=== PATIENT | female | born 1970 | race Caucasian/White ===

== ENCOUNTER 2017-08-03 20:15 | Observation (INO) | payer BC ==
[2017-08-03] MEDS ORDERED: Sodium Chloride 0.9% 1000 ML 1,000 ML IV SCH (20:30)
[2017-08-03] MEDS ORDERED: DUONEB 0.5-3 MG/3 ml Neb IH ONE ×2 (20:34→20:47)
--- NOTE | 2017-08-03 20:34 | ERPHSYRPT ---
- History of Present Illness Time Seen by Provider: 08/03/17 20:29 Source: patient, family Exam Limitations: clinical condition Patient Subjective Stated Complaint: states had to shake her awake at home.. difficulty walking and dizziness. has had a toothache yesterday. slow to respond. took 2 people to get out of car. Triage Nursing Assessment: sluggish and slow to respond. had to remove from car with assist of 2. sugar low at home at approx 66 and was given 2 reeses cups per . sufgar on arrival 224. very unstavble with walking. able to transfer with assist of 2. VINSON Able to follow commands. 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 Timing/Duration: today Severity: moderate Character of Deficits: new weakness, general (difuse) Baseline/Normal Cognition: alert oriented x 3 Current Cognition: alert but confused Baseline Gait: walks w/o assistance Associated Symptoms: confusion, nausea, vomiting, weakness, insomnia, trouble walking Allergies/Adverse Reactions: codeine [Codeine] Allergy (Severe, Verified 01/31/12 13:56) chest pain Sulfa (Sulfonamide Antibiotics) [Sulfa(Sulfonamide Antibiotics)] Allergy ( Intermediate, Verified 01/31/12 13:56) Difficulty Breathing Home Medications: Albuterol 1 puff IH BID PRN 01/31/12 [History] Alprazolam [Xanax] 2 mg QID 01/31/12 [History] Glyburide 5 mg [Micronase 5 MG] 5 mg DAILY 01/31/12 [History] Metformin HCl 1000 mg [Glucophage 1000 MG] 1,000 mg BID 01/31/12 [History] Oxycodone HCl 80 mg TID 01/31/12 [History] Quetiapine Fumarate [Seroquel] 400 mg BID 01/31/12 [History] Hydrocodone Bit/Acetaminophen [Hydrocodon-Acetaminophn 10-325] 10 mg PO Q6H PRN PRN 07/24/15 [History] Pravastatin Sodium 40 mg PO DAILY 07/24/15 [History] Hx Influenza Vaccination/Date Given: No Hx Pneumococcal Vaccination/Date Given: No Immunizations Up to Date: (unknown) - Review of Systems Constitutional: No Fever, No Chills Eyes: No Symptoms Ears, Nose, & Throat: No Symptoms Respiratory: Wheezing, No Cough, No Dyspnea Cardiac: No Chest Pain, No Edema, No Syncope Abdominal/Gastrointestinal: Nausea, Vomiting, No Abdominal Pain, No Diarrhea Genitourinary Symptoms: No Dysuria Musculoskeletal: No Back Pain, No Neck Pain Skin: No Rash Neurological: No Dizziness, No Focal Weakness, No Sensory Changes Psychological: No Symptoms Endocrine: No Symptoms All Other Systems: Reviewed and Negative - Past Medical History Pertinent Past Medical History: Yes Neurological History: Peripheral Neuropathy ENT History: No Pertinent History Cardiac History: No Pertinent History Respiratory History: Asthma Endocrine Medical History: Diabetes Type II Musculoskeletal History: Arthritis, Fractures GI Medical History: Gallbladder Disease, Hemorrhoids History: No Pertinent History Psycho-Social History: Anxiety, Depression Female Reproductive Disorders: Menstrual Problems Other Medical History: celiac disease - Past Surgical History Past Surgical History: Yes Neuro Surgical History: No Pertinent History Cardiac: No Pertinent History Respiratory: No Pertinent History Gastrointestinal: No Pertinent History, Cholecystectomy Genitourinary: No Pertinent History Musculoskeletal: No Pertinent History Female Surgical History: Other Other Surgical History: age 17 had exploratory to check ovaries - Social History Smoking Status: Current every day smoker How long have you smoked: 23 years Exposure to second hand smoke: Yes Drug Use: none Patient Lives Alone: No Significant Family History: no pertinent family hx - Female History Hx Last Menstrual Period: unknown Hx Now: No (hcg pending) - Nursing Vital Signs Nursing Vital Signs: Initial Vital Signs Pulse Rate 122 H 08/03/17 20:19 Respiratory Rate 20 08/03/17 20:19 Blood Pressure 179/110 08/03/17 20:19 O2 Sat by Pulse Oximetry 93 L 08/03/17 20:19 Pain Scale Pain Intensity 5 - [place] Coma Scale Best Eye Response (Kristopher): (4) open spontaneously Best Verbal Response ([place]): (5) oriented Best Motor Response (Kristopher): (6) obeys commands Kristopher Total: 15 - Physical Exam General Appearance: no apparent distress, alert Eye Exam: bilateral eye: PERRL, EOMI Ears, Nose, Throat Exam: normal ENT inspection, moist mucous membranes Neck Exam: normal inspection, non-tender, supple Respiratory: airway intact, wheezing, No respiratory distress Cardiovascular: regular rate/rhythm, No edema Gastrointestinal: soft, No tenderness, No distention Back Exam: normal inspection Extremity Exam: normal inspection, No pedal edema Peripheral Pulses: carotid (R): 2+, carotid (L): 2+, femoral (R): 2+, femoral (L ): 2+, dorsalis-pedis (R): 2+, dorsalis-pedis (L): 2+ 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, 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: PERRL, tongue midline Motor/Sensory: no motor deficit, no pronator drift, weak motor strength RUE, weak motor strength LUE, weak motor strength RLE, weak motor strength LLE DTR: bicep (R): 2+, bicep (L): 2+, tricep (R): 2+, tricep (L): 2+, knee (R): 2+ , knee (L): 2+, ankle (R): 2+, ankle (L): 2+ Skin Exam: normal color, warm, dry, No rash SpO2 Interpretation: borderline oxygenation SpO2: 94 Oxygen Delivery: Room Air - Course Nursing assessment & vital signs reviewed: Yes EKG Interpreted by Me: Sinus Tach, Non-specific ST Changes - Radiology Exams Chest X-ray Interpretation: Reviewed by me, No Pneumonia (chronic changes similar to prior) - CT Exams Head CT Interpretation: Tele-radiologist Report, No/Intracranial Hemorrhag Ordered Tests: Active Orders 24 hr Category Date Time Status Manager Interventional STAT Care 08/03/17 20:24 Active Clean Catch Urine Specimen STAT Care 08/03/17 20:22 Active EKG-ER Only STAT Care 08/03/17 20:22 Active IV Insertion STAT Care 08/03/17 20:22 Active NPO (ED) STAT Care 08/03/17 20:22 Active Pulse Oximetry (ED) STAT Care 08/03/17 20:22 Active CHEST 1 VIEW (PORTABLE) Stat Exams 08/03/17 20:23 Taken HEAD WITHOUT CONTRAST [CT] Stat Exams 08/03/17 20:32 Taken CBC W DIFF Stat Lab 08/03/17 20:30 Completed CMP Stat Lab 08/03/17 22:38 Completed CULTURE, THROAT Stat Lab 08/03/17 21:00 Received D-DIMER QUANTITATION Stat Lab 08/03/17 20:30 Completed ETHYL ALCOHOL Stat Lab 08/03/17 20:30 Completed HCG QUALITATIVE,SERUM Stat Lab 08/03/17 20:30 Completed LIPASE Stat Lab 08/03/17 20:30 Completed Lactic Acid Stat Lab 08/03/17 20:22 Completed Lactic Acid Stat Lab 08/03/17 22:43 Ordered MAGNESIUM Stat Lab 08/03/17 20:30 Completed Manual Differential NC Stat Lab 08/03/17 20:30 Completed NT PRO BNP Stat Lab 08/03/17 20:30 Completed STREP SCREEN-BETA A Stat Lab 08/03/17 21:00 Completed T4 (Thyroxine) Stat Lab 08/03/17 20:30 Completed TROPONIN Q3H Lab 08/03/17 20:30 Completed TROPONIN Q3H Lab 08/03/17 23:30 Ordered TROPONIN Q3H Lab 08/04/17 02:30 Ordered TROPONIN Q3H Lab 08/04/17 05:30 Ordered TROPONIN Q3H Lab 08/04/17 08:30 Ordered TSH [TSH, 3RD Generation] Stat Lab 08/03/17 20:30 Completed UA W/RFX UR CULTURE Stat Lab 08/03/17 20:23 Completed Urine Triage Profile Stat Lab 08/03/17 22:00 Completed Respiratory Nebulizer STAT RT 08/03/17 20:34 Completed Medication Summary Generic Name Dose Route Start Last Admin Trade Name Freq PRN Reason Stop Dose Admin Sodium Chloride 1,000 mls @ 100 mls/hr 08/03/17 20:30 08/03/17 20:43 Sodium Chloride 0.9% 1000 Ml IV 09/02/17 20:29 100 mls/hr .Q10H SHELLEY Administration Discontinued Medications Generic Name Dose Route Start Last Admin Trade Name Freq PRN Reason Stop Dose Admin Albuterol/Ipratropium 3 ml 08/03/17 20:34 08/03/17 20:49 Duoneb 0.5-3 Mg/3 Ml Neb IH 08/03/17 20:35 3 ml STAT ONE Administration Albuterol/Ipratropium Confirm 08/03/17 20:47 Duoneb 0.5-3 Mg/3 Ml Neb Administered 08/03/17 20:48 Dose 3 ml IH .STK-MED ONE Ceftriaxone Sodium/Dextrose 1 g in 50 mls @ 100 mls/hr 08/03/17 23:02 23:18 Rocephin 1 Gm-D5w 50 Ml Bag IV 08/03/17 23:31 100 mls/hr STAT STA Administration Lab/Rad Data: Laboratory Result Diagrams 08/03/17 20:30 08/03/17 22:38 Laboratory Results 08/03/17 08/03/17 08/03/17 Range/Units 22:38 22:00 21:00 WBC (4.0-10.5) K/mm3 RBC (4.1-5.4) M/mm3 Hgb (12.0-16.0) gm/dl Hct (35-47) % MCV (78-100) fl MCH (26-32) pg MCHC (32-36) g/dl RDW (11.5-14.0) % Plt Count (150-450) K/mm3 MPV (6-9.5) fl D-Dimer (215-500) ng/mL Sodium 143 (137-145) mmol/L Potassium 5.1 (3.5-5.1) mmol/L Chloride 105 (98-107) mmol/L Carbon Dioxide 18 L (22-30) mmol/L Anion Gap 24.5 H (5-15) MEQ/L BUN 36 H (7-17) mg/dL Creatinine 1.85 H (0.52-1.04) mg/dL Estimated GFR 31 ML/MIN Glucose 237 H (74-106) mg/dL Lactic Acid (0.4-2.0) Calcium 10.4 H (8.4-10.2) mg/dL Magnesium (1.6-2.3) mg/dL Total Bilirubin 0.40 (0.2-1.3) mg/dL AST 21 (14-36) U/L ALT 21 (0-35) U/L Alkaline Phosphatase 137 H (38-126) U/L Troponin I (0.000-0.034) ng/mL NT-Pro-B Natriuret Pep (0-450) pg/mL Serum Total Protein 8.3 H (6.3-8.2) g/dL Albumin 4.7 (3.5-5.0) g/dL Lipase (23-300) U/L Thyroxine (T4) (5.53-10.96) ug/dL TSH 3rd Generation (0.47-4.68) mIU/L Serum , Qual (Negative) Ur Collection Type Urine Color (YELLOW) Urine Appearance (CLEAR) Urine pH (5-6) Ur Specific [place] (1.005-1.025) Urine Protein (Negative) Urine Ketones (NEGATIVE) Urine Blood (0-5) Shant/ul Urine Nitrite (NEGATIVE) Urine Bilirubin (NEGATIVE) Urine Urobilinogen (0-1) mg/dL Ur Leukocyte Esterase (NEGATIVE) Urine Culture Reflexed (NO) Urine Glucose (NEGATIVE) mg/dL Urine Opiates Level NEGATIVE (NEGATIVE) Ur Methadone NEGATIVE (NEGATIVE) Urine Barbiturates NEGATIVE (NEGATIVE) Ur Phencyclidine (PCP) NEGATIVE (NEGATIVE) Urine Amphetamine NEGATIVE (NEGATIVE) U Benzodiazepine Level POSITIVE (NEGATIVE) Urine Cocaine NEGATIVE (NEGATIVE) Urine Marijuana (THC) NEGATIVE (NEGATIVE) Ethyl Alcohol (0-9) mg/dL Influenza Type A Ag (NEGATIVE) Influenza Type B Ag (NEGATIVE) RSV (PCR) (Negative) Streptococcus Screen NEGATIVE (Negative) Specimen Received 08/03/17 08/03/17 08/03/17 Range/Units 21:00 20:30 20:30 WBC (4.0-10.5) K/mm3 RBC (4.1-5.4) M/mm3 Hgb (12.0-16.0) gm/dl Hct (35-47) % MCV (78-100) fl MCH (26-32) pg MCHC (32-36) g/dl RDW (11.5-14.0) % Plt Count (150-450) K/mm3 MPV (6-9.5) fl D-Dimer (215-500) ng/mL Sodium (137-145) mmol/L Potassium (3.5-5.1) mmol/L Chloride (98-107) mmol/L Carbon Dioxide (22-30) mmol/L Anion Gap (5-15) MEQ/L BUN (7-17) mg/dL Creatinine (0.52-1.04) mg/dL Estimated GFR ML/MIN Glucose (74-106) mg/dL Lactic Acid (0.4-2.0) Calcium (8.4-10.2) mg/dL Magnesium (1.6-2.3) mg/dL Total Bilirubin (0.2-1.3) mg/dL AST (14-36) U/L ALT (0-35) U/L Alkaline Phosphatase (38-126) U/L Troponin I (0.000-0.034) ng/mL NT-Pro-B Natriuret Pep (0-450) pg/mL Serum Total Protein (6.3-8.2) g/dL Albumin (3.5-5.0) g/dL Lipase (23-300) U/L Thyroxine (T4) 13.4 H (5.53-10.96) ug/dL TSH 3rd Generation 0.594 (0.47-4.68) mIU/L Serum , Qual (Negative) Ur Collection Type Urine Color (YELLOW) Urine Appearance (CLEAR) Urine pH (5-6) Ur Specific [place] (1.005-1.025) Urine Protein (Negative) Urine Ketones (NEGATIVE) Urine Blood (0-5) Shant/ul Urine Nitrite (NEGATIVE) Urine Bilirubin (NEGATIVE) Urine Urobilinogen (0-1) mg/dL Ur Leukocyte Esterase (NEGATIVE) Urine Culture Reflexed (NO) Urine Glucose (NEGATIVE) mg/dL Urine Opiates Level (NEGATIVE) Ur Methadone (NEGATIVE) Urine Barbiturates (NEGATIVE) Ur Phencyclidine (PCP) (NEGATIVE) Urine Amphetamine (NEGATIVE) U Benzodiazepine Level (NEGATIVE) Urine Cocaine (NEGATIVE) Urine Marijuana (THC) (NEGATIVE) Ethyl Alcohol (0-9) mg/dL Influenza Type A Ag NEGATIVE (NEGATIVE) Influenza Type B Ag NEGATIVE (NEGATIVE) RSV (PCR) NEGATIVE (Negative) Streptococcus Screen (Negative) Specimen Received 08/03/17 08/03/17 08/03/17 Range/Units 20:30 20:30 20:30 WBC (4.0-10.5) K/mm3 RBC (4.1-5.4) M/mm3 Hgb (12.0-16.0) gm/dl Hct (35-47) % MCV (78-100) fl MCH (26-32) pg MCHC (32-36) g/dl RDW (11.5-14.0) % Plt Count (150-450) K/mm3 MPV (6-9.5) fl D-Dimer < 215 L (215-500) ng/mL Sodium (137-145) mmol/L Potassium (3.5-5.1) mmol/L Chloride (98-107) mmol/L Carbon Dioxide (22-30) mmol/L Anion Gap (5-15) MEQ/L BUN (7-17) mg/dL Creatinine (0.52-1.04) mg/dL Estimated GFR ML/MIN Glucose (74-106) mg/dL Lactic Acid (0.4-2.0) Calcium (8.4-10.2) mg/dL Magnesium (1.6-2.3) mg/dL Total Bilirubin (0.2-1.3) mg/dL AST (14-36) U/L ALT (0-35) U/L Alkaline Phosphatase (38-126) U/L Troponin I < 0.012 (0.000-0.034) ng/mL NT-Pro-B Natriuret Pep (0-450) pg/mL Serum Total Protein (6.3-8.2) g/dL Albumin (3.5-5.0) g/dL Lipase (23-300) U/L Thyroxine (T4) (5.53-10.96) ug/dL TSH 3rd Generation (0.47-4.68) mIU/L Serum , Qual NEGATIVE (Negative) Ur Collection Type Urine Color (YELLOW) Urine Appearance (CLEAR) Urine pH (5-6) Ur Specific [place] (1.005-1.025) Urine Protein (Negative) Urine Ketones (NEGATIVE) Urine Blood (0-5) Shant/ul Urine Nitrite (NEGATIVE) Urine Bilirubin (NEGATIVE) Urine Urobilinogen (0-1) mg/dL Ur Leukocyte Esterase (NEGATIVE) Urine Culture Reflexed (NO) Urine Glucose (NEGATIVE) mg/dL Urine Opiates Level (NEGATIVE) Ur Methadone (NEGATIVE) Urine Barbiturates (NEGATIVE) Ur Phencyclidine (PCP) (NEGATIVE) Urine Amphetamine (NEGATIVE) U Benzodiazepine Level (NEGATIVE) Urine Cocaine (NEGATIVE) Urine Marijuana (THC) (NEGATIVE) Ethyl Alcohol (0-9) mg/dL Influenza Type A Ag (NEGATIVE) Influenza Type B Ag (NEGATIVE) RSV (PCR) (Negative) Streptococcus Screen (Negative) Specimen Received 03/18/18 03/18/18 03/18/18 Range/Units 20:30 20:30 20:23 WBC 15.0 H (4.0-10.5) K/mm3 RBC 4.91 (4.1-5.4) M/mm3 Hgb 15.2 (12.0-16.0) gm/dl Hct 46.6 (35-47) % MCV 94.9 (78-100) fl MCH 31.0 (26-32) pg MCHC 32.6 (32-36) g/dl RDW 14.5 H (11.5-14.0) % Plt Count 309 (150-450) K/mm3 MPV 9.8 H (6-9.5) fl D-Dimer (215-500) ng/mL Sodium (137-145) mmol/L Potassium (3.5-5.1) mmol/L Chloride (98-107) mmol/L Carbon Dioxide (22-30) mmol/L Anion Gap (5-15) MEQ/L BUN (7-17) mg/dL Creatinine (0.52-1.04) mg/dL Estimated GFR ML/MIN Glucose (74-106) mg/dL Lactic Acid (0.4-2.0) Calcium (8.4-10.2) mg/dL Magnesium 1.9 (1.6-2.3) mg/dL Total Bilirubin (0.2-1.3) mg/dL AST (14-36) U/L ALT (0-35) U/L Alkaline Phosphatase (38-126) U/L Troponin I (0.000-0.034) ng/mL NT-Pro-B Natriuret Pep 32.8 (0-450) pg/mL Serum Total Protein (6.3-8.2) g/dL Albumin (3.5-5.0) g/dL Lipase 33 (23-300) U/L Thyroxine (T4) (5.53-10.96) ug/dL TSH 3rd Generation (0.47-4.68) mIU/L Serum , Qual (Negative) Ur Collection Type CLEAN CATCH Urine Color YELLOW (YELLOW) Urine Appearance CLEAR (CLEAR) Urine pH 5.0 (5-6) Ur Specific [place] 1.025 (1.005-1.025) Urine Protein NEGATIVE (Negative) Urine Ketones SMALL (NEGATIVE) Urine Blood NEGATIVE (0-5) Shant/ul Urine Nitrite NEGATIVE (NEGATIVE) Urine Bilirubin NEGATIVE (NEGATIVE) Urine Urobilinogen NORMAL (0-1) mg/dL Ur Leukocyte Esterase NEGATIVE (NEGATIVE) Urine Culture Reflexed NO (NO) Urine Glucose 1000 (NEGATIVE) mg/dL Urine Opiates Level (NEGATIVE) Ur Methadone (NEGATIVE) Urine Barbiturates (NEGATIVE) Ur Phencyclidine (PCP) (NEGATIVE) Urine Amphetamine (NEGATIVE) U Benzodiazepine Level (NEGATIVE) Urine Cocaine (NEGATIVE) Urine Marijuana (THC) (NEGATIVE) Ethyl Alcohol < 10 H (0-9) mg/dL Influenza Type A Ag (NEGATIVE) Influenza Type B Ag (NEGATIVE) RSV (PCR) (Negative) Streptococcus Screen (Negative) Specimen Received [id number] 08/03/17 Range/Units 20:22 WBC (4.0-10.5) K/mm3 RBC (4.1-5.4) M/mm3 Hgb (12.0-16.0) gm/dl Hct (35-47) % MCV (78-100) fl MCH (26-32) pg MCHC (32-36) g/dl RDW (11.5-14.0) % Plt Count (150-450) K/mm3 MPV (6-9.5) fl D-Dimer (215-500) ng/mL Sodium (137-145) mmol/L Potassium (3.5-5.1) mmol/L Chloride (98-107) mmol/L Carbon Dioxide (22-30) mmol/L Anion Gap (5-15) MEQ/L BUN (7-17) mg/dL Creatinine (0.52-1.04) mg/dL Estimated GFR ML/MIN Glucose (74-106) mg/dL Lactic Acid 2.1 H (0.4-2.0) Calcium (8.4-10.2) mg/dL Magnesium (1.6-2.3) mg/dL Total Bilirubin (0.2-1.3) mg/dL AST (14-36) U/L ALT (0-35) U/L Alkaline Phosphatase (38-126) U/L Troponin I (0.000-0.034) ng/mL NT-Pro-B Natriuret Pep (0-450) pg/mL Serum Total Protein (6.3-8.2) g/dL Albumin (3.5-5.0) g/dL Lipase (23-300) U/L Thyroxine (T4) (5.53-10.96) ug/dL TSH 3rd Generation (0.47-4.68) mIU/L Serum , Qual (Negative) Ur Collection Type Urine Color (YELLOW) Urine Appearance (CLEAR) Urine pH (5-6) Ur Specific [place] (1.005-1.025) Urine Protein (Negative) Urine Ketones (NEGATIVE) Urine Blood (0-5) Shant/ul Urine Nitrite (NEGATIVE) Urine Bilirubin (NEGATIVE) Urine Urobilinogen (0-1) mg/dL Ur Leukocyte Esterase (NEGATIVE) Urine Culture Reflexed (NO) Urine Glucose (NEGATIVE) mg/dL Urine Opiates Level (NEGATIVE) Ur Methadone (NEGATIVE) Urine Barbiturates (NEGATIVE) Ur Phencyclidine (PCP) (NEGATIVE) Urine Amphetamine (NEGATIVE) U Benzodiazepine Level (NEGATIVE) Urine Cocaine (NEGATIVE) Urine Marijuana (THC) (NEGATIVE) Ethyl Alcohol (0-9) mg/dL Influenza Type A Ag (NEGATIVE) Influenza Type B Ag (NEGATIVE) RSV (PCR) (Negative) Streptococcus Screen (Negative) Specimen Received - Progress Progress: improved, re-examined Progress Note: 08/03/17 23:58 discussed with pt , family and Dr. Cunha and all agree best to place pt in on OBs for neuro checks and will give ASA pt has olga in past ; Counseled pt/family regarding: lab results, diagnosis, need for follow-up, rad results - Departure Time of Disposition: 23:58 Departure Disposition: Observation Clinical Impression: Altered mental status, unspecified, Diabetes mellitus with hypoglycemia, Elevated WBC count, Renal insufficiency, Thyroid nodule, toxic or with hyperthyroidism Condition: Good Critical Care Time: Yes Critical Care Time(excluding separately billable procedures): 30-74 minutes (to moniot neuro and airway status as confused for first 30 minutes of ER visit) Referrals: URI RAMAN [Primary Care Provider] -
[2017-08-03] MEDS ORDERED: Sodium Chloride 0.9% 1000 ML 1,000 ML ONE (20:41)
[2017-08-03 20:44] LABS: Lactic Acid 2.1 (0.4-2.0)
[2017-08-03 20:46] LABS: Granulocyte Absolute (ANC) 12.27 (1.4-6.9); Hematocrit 46.6 % (35-47); Hemoglobin 15.2 gm/dl (12.0-16.0); Mean Cell Volume 94.9 fl (78-100); Mean Corpuscular Hgb Concent. 32.6 g/dl (32-36); Mean Platelet Volume 9.8 fl (6-9.5); Platelet Count 309 K/mm3 (150-450); Red Blood Count 4.91 M/mm3 (4.1-5.4); Red Cell Distribution Width 14.5 % (11.5-14.0)
[2017-08-03 21:02] LABS: LIPASE 33 U/L (23-300)
[2017-08-03 21:12] LABS: NT PRO BNP 32.8 pg/mL (0-450)
[2017-08-03 21:17] LABS: ETHYL ALCOHOL < 10 mg/dL (0-9)
[2017-08-03 21:52] LABS: INFLUENZA A NEGATIVE (NEGATIVE); INFLUENZA B NEGATIVE (NEGATIVE); RESPIRATORY SYNCTIAL VIRUS NEGATIVE (Negative)
[2017-08-03 22:51] LABS: ALBUMIN 4.7 g/dL (3.5-5.0); ANION GAP 24.5 MEQ/L (5-15); BILIRUBIN,TOTAL 0.4 mg/dL (0.2-1.3); Calcium 10.4 mg/dL (8.4-10.2); Creatinine 1 1.85 mg/dL (0.52-1.04); Potassium 5.1 mmol/L (3.5-5.1); Total Protein 8.3 g/dL (6.3-8.2)
[2017-08-03] MEDS ORDERED: ROCEPHIN 1 Gm-D5w 50 ml Bag** 1 G/50 ML IVPB IV STA (23:02)
[2017-08-03 23:25] LABS: Appearance CLEAR (CLEAR); Bilirubin NEGATIVE (NEGATIVE); Blood NEGATIVE Ery/ul (0-5); Glucose 1000 mg/dL (NEGATIVE); Ketones SMALL (NEGATIVE); Leukocyte Esterase NEGATIVE (NEGATIVE); Nitrite NEGATIVE (NEGATIVE); Protein,Urine Dip NEGATIVE (Negative); Specific Gravity 1.025 (1.005-1.025); Urobilinogen NORMAL mg/dL (0-1)
[2017-08-03 23:54] LABS: Amphetamine,Urine NEGATIVE (NEGATIVE); Barbiturate,Urine NEGATIVE (NEGATIVE); Benzodiazepine,Urine POSITIVE (NEGATIVE); Cocaine,Urine NEGATIVE (NEGATIVE); Methadone,Urine NEGATIVE (NEGATIVE); Opiate,Urine NEGATIVE (NEGATIVE); PCP,Urine NEGATIVE (NEGATIVE); THC,Urine NEGATIVE (NEGATIVE)
[2017-08-04] MEDS ORDERED: NovoLIN R SQ PRN (00:53)
[2017-08-04] MEDS ORDERED: TYLENOL 325 MG PO PRN (00:53)
[2017-08-04] MEDS ORDERED: DUONEB 0.5-3 MG/3 ml Neb IH PRN (00:53)
[2017-08-04 02:18] LABS: Eosinophil 1 % (0.00-3.0); Lymphocytes 20 % (24-44); Monocyte 5 % (0.0-12.0); Neutrophils 74 % (36.0-66.0); Platelet Estimate NORMAL (NORMAL); Total Cells Counted 100
[2017-08-04 06:03] LABS: Granulocyte Absolute (ANC) 10.41 (1.4-6.9); Hematocrit 46.4 % (35-47); Hemoglobin 14.9 gm/dl (12.0-16.0); Lymphocyte (Absolute #) 2.67 (1.0-4.6); Mean Cell Volume 94.9 fl (78-100); Mean Corpuscular Hemoglobin 30.5 pg (26-32); Mean Corpuscular Hgb Concent. 32.1 g/dl (32-36); Mean Platelet Volume 9.8 fl (6-9.5); Platelet Count 341 K/mm3 (150-450); Red Blood Count 4.89 M/mm3 (4.1-5.4); Red Cell Distribution Width 14.4 % (11.5-14.0); White Blood Count 13.7 K/mm3 (4.0-10.5)
[2017-08-04 06:23] LABS: Lactic Acid 3.1 (0.4-2.0)
[2017-08-04 07:42] LABS: Lymphocytes 19 % (24-44); Monocyte 1 % (0.0-12.0); Neutrophils 80 % (36.0-66.0); Platelet Estimate NORMAL (NORMAL); Total Cells Counted 100; Toxic Granulation 1+
--- NOTE | 2017-08-04 08:05 | PCM.HP ---
History of Present Illness - Chief Complaint Chief Complaint: Altered mental status, hypoglycemia Date: 08/04/17 History of Present Illness: is a 47 year old female. who has history of chronic anxiety, chronic pain and diabetes mellitus was feeling well until she began to have a tooth infection Friday and then Friday was very tired slept all day and when her family tried to wake her she was confused and sugar was 66 they gave her candy and chocolet and it improved to 200 but she was still weak and had slurred speach. She was brought to the ED. She states she was only taking her medications as prescribed. She recently had her diabetic medications changed and started on insulin on Friday she states. She was eating and drinking prior to Friday. She has no focal weakness or numbness. This morning she is feeling much better no weakness and walking without assistance. - Review of Systems Constitutional: No Fever, No Chills Eyes: No Symptoms Ears, Nose, & Throat: No Symptoms Respiratory: No Cough, No Short Of Breath Cardiac: No Chest Pain, No Edema, No Syncope Abdominal/Gastrointestinal: No Abdominal Pain, No Nausea, No Vomiting, No Diarrhea Genitourinary Symptoms: No Dysuria Musculoskeletal: No Back Pain, No Neck Pain Skin: No Rash Neurological: No Dizziness, No Focal Weakness, No Sensory Changes Psychological: No Symptoms Endocrine: No Symptoms Hematologic/Lymphatic: No Symptoms Immunological/Allergic: No Symptoms Medications & Allergies Home Medications: Home Medication List Albuterol 1 puff IH BID PRN PRN 01/31/12 [History Confirmed 08/04/17] Alprazolam [Xanax] 1 mg PO QID 01/31/12 [History Confirmed 08/04/17] Glyburide 5 mg [Micronase 5 MG] 10 mg PO BID 01/31/12 [History Confirmed 08/04/17] Pravastatin Sodium 40 mg PO HS 07/24/15 [History Confirmed 08/04/17] Amox Tr/Potass Clav. 875 mg [Augmentin 875-125 Tablet] 1 each PO BID #12 tablet 08/04/17 [Rx] Baclofen 20 mg PO TID 08/04/17 [History Confirmed 08/04/17] Bupropion HCl Xl 150 mg [Wellbutrin XL 150 MG] 150 mg PO TID 08/04/17 [ History Confirmed 08/04/17] Buspirone HCl 15 mg PO BID 08/04/17 [History Confirmed 08/04/17] Insulin Glargine,Hum.rec.anlog [Ceasar Miranda] 15 units SQ HS #5 08/04/17 [Rx Confirmed 08/04/17] Lisinopril 20 mg PO DAILY 08/04/17 [History Confirmed 08/04/17] Norethindrone-E.estradiol-Iron [Tessie Fe 1-20 Tablet] 1 tablet PO HS 08/04/17 [ History Confirmed 08/04/17] Oxycodone / APAP 10/325 mg [Oxycodone-Acetaminophen 10-325] 1 tab PO 5XD 08/04/17 [History Confirmed 08/04/17] Quetiapine Fumarate 200 mg PO DAILY 08/04/17 [History Confirmed 08/04/17] Allergies/Adverse Reactions: Allergies Allergy/AdvReac Type Severity Reaction Status Date / Time codeine [Codeine] Allergy Severe Verified 01/31/12 13:56 Sulfa (Sulfonamide Allergy Intermediate Difficulty Verified 01/31/12 13:56 Antibiotics) Breathing [Sulfa(Sulfonamide Antibiotics)] gluten AdvReac Verified 08/04/17 01:32 - Past Medical History Past Medical History: Yes Neurological History: Peripheral Neuropathy ENT History: No Pertinent History Cardiac History: No Pertinent History Respiratory History: Asthma Endocrine Medical History: Diabetes Type II Musculoskelatal History: Arthritis, Fractures GI Medical History: Gallbladder Disease, Hemorrhoids History: No Pertinent History Pyscho-Social History: Anxiety, Depression Reproductive Disorders: Menstrual Problems Comment: celiac disease - Female History Hx Last Menstrual Period: unknown Are you now?: No - Past Surgical History Past Surgical History: Yes Neuro Surgical History: No Pertinent History Cardiac History: No Pertinent History Respiratory Surgery: No Pertinent History GI Surgical History: No Pertinent History, Appendectomy, Cholecystectomy Genitourinary Surgical Hx: No Pertinent History Musculskeletal Surgical Hx: No Pertinent History Female Surgical History: Other Other Surgical History: age 17 had exploratory to check ovaries - Social History Smoking Status: Current every day smoker How long have you smoked: 23 years Exposure to second hand smoke: Yes Alcohol: None Drug Use: none Significant Family History: no pertinent family hx - Physical Exam Vital Signs: Vital Signs - 24 hr Temp Pulse Resp BP BP Pulse Ox 08/04/17 07:42 97.8 F 108 H 14 139/89 93 L 08/04/17 04:45 74 18 93 L 08/04/17 04:01 98.5 F 76 18 162/78 93 L 08/04/17 01:33 98.4 F 98 H 16 145/67 93 L 08/04/17 00:01 94 L 08/03/17 23:00 80 18 95 08/03/17 21:10 98.9 F 106 H 18 175/9 94 L 08/03/17 20:49 110 H 19 93 L 08/03/17 20:28 94 L 08/03/17 20:19 122 H 20 179/110 93 L General Appearance: no apparent distress, alert Neurologic Exam: alert, oriented x 3, cooperative, normal mood/affect, sensation nml, No motor deficits, No sensory deficit, 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 Eye Exam: PERRL/EOMI, eyes nml inspection Ears, Nose, Throat Exam: normal ENT inspection, pharynx normal, moist mucous membranes, other (poor dentition redness around broken left lower tooth with tenderness no fluctuance) Neck Exam: normal inspection, non-tender, supple, full range of motion Respiratory Exam: wheezing, No respiratory distress, No crackles/rales Cardiovascular Exam: regular rate/rhythm, normal heart sounds, normal peripheral pulses Gastrointestinal/Abdomen Exam: soft, normal bowel sounds, No tenderness, No mass Back Exam: normal inspection, normal range of motion, No CVA tenderness, No vertebral tenderness Extremity Exam: normal inspection, normal range of motion Skin Exam: normal color, warm, dry, No rash Lymphatic Exam: No adenopathy Results - Labs Lab/Micro Results: Lab Results-Last 24 Hours 08/04/17 08/04/17 08/04/17 Range/Units 02:30 05:14 05:14 WBC 13.7 H (4.0-10.5) K/mm3 RBC 4.89 (4.1-5.4) M/mm3 Hgb 14.9 (12.0-16.0) gm/dl Hct 46.4 (35-47) % MCV 94.9 (78-100) fl MCH 30.5 (26-32) pg MCHC 32.1 (32-36) g/dl RDW 14.4 H (11.5-14.0) % Plt Count 341 (150-450) K/mm3 MPV 9.8 H (6-9.5) fl Segmented Neutrophils 80 H (36.0-66.0) % Lymphocytes (Manual) 19 L (24-44) % Monocytes (Manual) 1 (0.0-12.0) % Differential Comment NORMAL Toxic Granulation 1+ Platelet Estimate NORMAL (NORMAL) Lactic Acid (0.4-2.0) Troponin I < 0.012 < 0.012 (0.000-0.034) ng/mL 08/04/17 Range/Units 06:00 WBC (4.0-10.5) K/mm3 RBC (4.1-5.4) M/mm3 Hgb (12.0-16.0) gm/dl Hct (35-47) % MCV (78-100) fl MCH (26-32) pg MCHC (32-36) g/dl RDW (11.5-14.0) % Plt Count (150-450) K/mm3 MPV (6-9.5) fl Segmented Neutrophils (36.0-66.0) % Lymphocytes (Manual) (24-44) % Monocytes (Manual) (0.0-12.0) % Differential Comment Toxic Granulation Platelet Estimate (NORMAL) Lactic Acid 3.1 H (0.4-2.0) Troponin I (0.000-0.034) ng/mL - Other Procedures and Tests Respiratory Therapy 08/04/17 07:00 neb [Respiratory Nebulizer] PRN Assessment/Plan (1) Acute kidney injury Current Visit: Yes Status: Acute Assessment & Plan: She had confusion yesterday likely related to her tooth infection with her polypharmacy and dehydration resulting in acute kidney injury with lactic acidosis. She was given maintenance fluids in ED. Lactic acid was still up this am and she was given a bolus of LR and it is improved she is feeling much better now. She is urinating well creatinine is improving. her metformin and lisinopril are held with her low normal tsh and high T4 will stop her levothyroxine that she reports she just started a few weeks ago. She received rocephin in ED for the tooth infection and elevated wbc her insulin was held and her glyburide is held her insulin will be decreased at discharge and close monitor of sugars and follow up with her marketing officer. The risk of her medications combination with risk of sedation, impaired reflexes , confusion, respiratory depression and were discussed in detail in robertrds to her alprazolam oxycodone baclofen and seroquel. She states her doses have been weaned from 160 mg of oxycodone and 8mg of alprazolam daily she was on a few years ago will d/c home with close follow up. and augmentin for the tooth abscess and dental follow up Code(s): N17.9 - ACUTE KIDNEY FAILURE, UNSPECIFIED (2) Tooth infection Current Visit: Yes Status: Acute Code(s): K04.7 - PERIAPICAL ABSCESS WITHOUT SINUS (3) Diabetes mellitus with hypoglycemia Current Visit: Yes Status: Acute Assessment & Plan: follows with IMAGE ASSEMBLER Brown in [place] was just changed to insulin on Friday per patient now with low blood sugar and [place] hold the metformin and glyburide Code(s): E11.649 - TYPE 2 DIABETES MELLITUS WITH HYPOGLYCEMIA WITHOUT COMA (4) Metabolic acidosis Current Visit: Yes Status: Acute Code(s): E87.2 - ACIDOSIS (5) Iatrogenic hyperthyroidism Current Visit: Yes Status: Acute Assessment & Plan: patient reports just starting thyroid medication after thyroid nodule found she denies taking more then prescribed. Code(s): E05.80 - OTHER THYROTOXICOSIS WITHOUT THYROTOXIC CRISIS OR STORM (6) Thyroid nodule Current Visit: Yes Status: Acute Code(s): E04.1 - NONTOXIC SINGLE THYROID NODULE (7) Essential hypertension Current Visit: Yes Status: Acute Code(s): I10 - ESSENTIAL (PRIMARY) HYPERTENSION (8) Anxiety Current Visit: Yes Status: Acute Assessment & Plan: she also takes alprazolam and percocet but denies misuse or overuse of these medications she follows with a pain doctor in [facility] Code(s): F41.9 - ANXIETY DISORDER, UNSPECIFIED (9) Chronic pain Current Visit: Yes Status: Acute Code(s): G89.29 - OTHER CHRONIC PAIN (10) Polypharmacy Current Visit: Yes Status: Acute Code(s): Z79.899 - OTHER USER SUPPORT ANALYST (CURRENT ) DRUG THERAPY (11) Lactic acidosis Current Visit: Yes Status: Acute Code(s): E87.2 - ACIDOSIS
[2017-08-04] MEDS ORDERED: Lactated Ringers 1,000 ML IV ONE (08:11)
[2017-08-04 08:28] LABS: A-aADO2 65; ABG POTASSIUM 4.6 (3.5-5.1); ARTERIAL BLD GAS O2 SATURATION 89.6 % (95-100); ARTERIAL BLOOD GAS BASE EXCESS -3.6 (-2.0-2.0); ARTERIAL BLOOD GAS FIO2 21 %; ARTERIAL BLOOD GAS PCO2 28 mmHg (35-45); ARTERIAL BLOOD GAS pH 7.44 (7.35-7.45); CARBOXYHEMOGLOBIN 2.9 % THgb (0.0-6.9); HGB O2 SAT 86.5 g/dF (94-100); Methhemoglobin 0.6 % (1.4-1.5); paO2 pAO1 0.43
[2017-08-04 08:29] LABS: ABG SITE LEFT RADIAL; ALLEN TEST OK? YES; ARTERIAL BLOOD GAS PO2 50 mmHg (75-100)
[2017-08-04] MEDS ORDERED: ALBUTEROL IH PRN (09:20)
--- NOTE | 2017-08-04 09:21 | XRAY ---
Indication: Wheezing. Comparison: January 27, 2012. Portable chest remains clear. Heart and mediastinal structures within normal limits. Bony thorax intact again with mild degenerative changes. No new/acute findings.
--- NOTE | 2017-08-04 09:23 | XRAY ---
Indication: Confusion. Multiple contiguous axial images obtained through the head without contrast. Comparison: April 28, 2009. Again normal appearing brain parenchyma, ventricles, and bony calvarium. Visualized paranasal sinuses and mastoid air cells are clear. Impression: Stable normal CT head without contrast exam. Comment: Preliminary interpretation was made by [facility]. No discrepancy. CTDI 68.51
[2017-08-04] MEDS ORDERED: PROVENTIL COMMON CANISTER IH PRN (09:33)
[2017-08-04] MEDS ORDERED: XANAX 1 MG PO SCH (10:00)
[2017-08-04] MEDS ORDERED: Seroquel 100 MG PO SCH (10:00)
[2017-08-04] MEDS ORDERED: BUSPAR 5 MG PO SCH (10:00)
[2017-08-04] MEDS ORDERED: Wellbutrin XL 150 MG PO SCH (10:00)
[2017-08-04] MEDS ORDERED: Lactated Ringers 1,000 ML IV SCH (10:30)
[2017-08-04] MEDS ORDERED: OXYCODONE-ACETAMINOPHEN 10-325 PO SCH (11:00)
[2017-08-04 11:31] LABS: ALBUMIN 4.4 g/dL (3.5-5.0); BILIRUBIN,TOTAL 0.3 mg/dL (0.2-1.3); Calcium 9.7 mg/dL (8.4-10.2); Creatinine 1 1.3 mg/dL (0.52-1.04); Potassium 4.9 mmol/L (3.5-5.1); Total Protein 8.1 g/dL (6.3-8.2)
[2017-08-04 12:16] VITALS: BP 139/74
[2017-08-04 13:33] VITALS: PULSE 90; O2SAT 94
--- NOTE | 2017-08-04 14:00 | PCM.DCORD ---
- Discharge Discharge Date: 08/04/17 Disposition: Home, Self-Care Condition: Good Prescriptions: New Amox Tr/Potass Clav. 875 mg [Augmentin 875-125 Tablet] 1 each PO BID # 12 tablet Continue Alprazolam [Xanax] 1 mg PO QID Albuterol 1 puff IH BID PRN PRN PRN Reason: asthma Glyburide 5 mg [Micronase 5 MG] 10 mg PO BID Pravastatin Sodium 40 mg PO HS Lisinopril 20 mg PO DAILY Norethindrone-E.estradiol-Iron [Tessie Fe 1-20 Tablet] 1 tablet PO HS Buspirone HCl 15 mg PO BID Baclofen 20 mg PO TID Bupropion HCl Xl 150 mg [Wellbutrin XL 150 MG] 150 mg PO TID Oxycodone / APAP 10/325 mg [Oxycodone-Acetaminophen 10-325] 1 tab PO 5XD Quetiapine Fumarate 200 mg PO DAILY Changed Insulin Glargine,Hum.rec.anlog [Toujeo Solostar] 15 units SQ HS #5 Discontinued Metformin HCl 1000 mg [Glucophage 1000 MG] 1,000 mg BID Diphenhydramine HCl 25 mg [Benadryl 25 mg Capsule] 25 mg PO TID PRN Levothyroxine Sodium 25 mcg PO DAILY Additional Instructions: Hold metformin for 3 days decrease toujeo to 15 units stop levothyroxine 25 mcg monitor sugar closely drink plenty of water follow up next week and have recheck of blood work for kidney tests. We discussed the risk of taking alprazolam, oxycodone, baclofen and seroquel together and the risk of sedation, confusion, impaired reflexes, respiratory depression and with this combination of medications. Follow up with: URI RAMAN [Primary Care Provider] - 1 Week
[2017-08-04] MEDS ORDERED: ROCEPHIN 1 Gm-D5w 50 ml Bag** 1 G/50 ML IVPB IV SCH (22:00)
[2017-08-04] MEDS ORDERED: PATIENT OWN MEDICATION PO SCH (22:00)
[2017-08-04] MEDS ORDERED: ZOCOR 20MG PO SCH (22:00)
[2017-08-04] MEDS ORDERED: Ecotrin 325 MG PO SCH (22:00)
[2017-08-04] MEDS ORDERED: NORETHINDRONE E ESTRADIOL IRON PO SCH (22:00)
== END 2017-08-04 14:55 | disposition home or self-care (01) ==
LOC: ED 20:15 → MED SURG 08-04 00:39
PROVIDERS: ADMIT Family Medicine; ATTEND Family Medicine
DX: N17.9 Acute kidney failure, unspecified (principal); K04.7 Periapical abscess without sinus; E11.649 Type 2 diabetes mellitus with hypoglycemia without coma; E87.2 Acidosis; E05.80 Other thyrotoxicosis without thyrotoxic crisis or storm; E04.1 Nontoxic single thyroid nodule; I10 Essential (primary) hypertension; F41.9 Anxiety disorder, unspecified; G89.29 Other chronic pain; Z79.899 Other long term (current) drug therapy
CPT/HCPCS: 36000; 36415; 36600; 70450; 71045; 80053; 80307; 81002; 82375; 82803; 82962; 83605; 83690; 83735; 83880; 84436; 84443; 84484; 84703; 85025; 85379; 87070; 87430; 87631; 93005; 93041; 93268; 94150; 94640; 94760; 99285; G0378; G0480; J0696; A9270-GY

== ENCOUNTER 2021-10-28 06:21 | Observation (INO) | payer BC, OTHER ==
[2021-10-28] MEDS ORDERED: Sodium Chloride 0.9% 1000 ML 1,000 ML IV STA ×3 (06:40→08:33)
[2021-10-28] MEDS ORDERED: Sodium Chloride 0.9% 1000 ML 1,000 ML ONE ×2 (06:50→08:49)
--- NOTE | 2021-10-28 06:57 | ERPHSYRPT ---
- History of Present Illness Source: patient, family Exam Limitations: clinical condition Patient Subjective Stated Complaint: pt states that she went to [facility] last night, then began to be short of breath, and became confused today, has had some vomiting, cannot answers questions appropriatly. Triage Nursing Assessment: pt is short of breath, very unsteady on feet, cannot recall events of the day, cannot answer questions appropriatly. states she does not have pain. Timing/Duration: yesterday Severity: moderate Associated Symptoms: nausea, vomiting, shortness of breath, headaches Hx Influenza Vaccination/Date Given: No Hx Pneumococcal Vaccination/Date Given: No <NAT GARCÍA - Last Filed: 10/28/21 06:52> <JOYCE DONALDSON - Last Filed: 10/28/21 08:57> - History of Present Illness Time Seen by Provider: 10/28/21 06:32 Physician History: Patient is a 51-year-old female presents with a confusing clinical picture which involves some shortness of breath almost like a stridor. The reports she went to [facility] yesterday and then developed confusion and had some vomiting last evening she he says has been going on like this for 2 days. He says she has been confused moaning she is on no new medicine she does have an internal pain pump which was recharged 2 weeks ago she does have some ataxia she denies any pain but later complains of a headache. When it was suggested that something might be wrong with her pain pump she said she did not overdose. She was also very quick to refuse a arterial blood gas because she was cognizant of the fact that they hurt. (NAT GARCÍA) Allergies/Adverse Reactions: codeine [Codeine] Allergy (Severe, Verified 01/31/12 13:56) chest pain Sulfa (Sulfonamide Antibiotics) [Sulfa(Sulfonamide Antibiotics)] Allergy (Intermediate, Verified 01/31/12 13:56) Difficulty Breathing gluten Adverse Reaction (Verified 08/04/17 01:32) Home Medications: ALPRAZolam [Xanax] 1 mg PO QID 01/31/12 [History] Albuterol 1 puff IH BID PRN PRN 01/31/12 [History] Glyburide 5 mg [Micronase 5 MG] 10 mg PO BID 01/31/12 [History] Pravastatin Sodium 40 mg PO HS 07/24/15 [History] Baclofen 20 mg PO TID 08/04/17 [History] Bupropion HCl Xl 150 mg [Wellbutrin XL 150 MG] 150 mg PO TID 08/04/17 [History] Buspirone HCl 15 mg PO BID 08/04/17 [History] Norethindrone-E.estradiol-Iron [Tessie Fe 1-20 Tablet] 1 tablet PO HS 08/04/17 [History] Oxycodone / APAP 10/325 mg [Oxycodone-Acetaminophen 10-325] 1 tab PO 5XD 08/04/17 [History] Quetiapine Fumarate 200 mg PO DAILY 08/04/17 [History] lisinopriL [Lisinopril] 20 mg PO DAILY 08/04/17 [History] Travel Risk - International Travel Have you traveled outside of the country in past 3 weeks: No - Coronavirus Screening Are you exhibiting any of the following symptoms?: No Close contact with a COVID-19 positive Pt in past 14-21 Days: No - Vaccine Status Have you recieved a Covid-19 vaccination: Yes [employer]: Moderna - Vaccination Dates Date of 2cond Vaccination (if applicable): unknown <NAT GARCÍA - Last Filed: 10/28/21 06:52> - Review of Systems Constitutional: No Fever, No Chills Eyes: No Symptoms Ears, Nose, & Throat: No Symptoms Respiratory: Dyspnea, Stridor, No Cough Cardiac: No Chest Pain, No Edema, No Syncope Abdominal/Gastrointestinal: No Abdominal Pain, No Nausea, No Vomiting, No Diarrhea Genitourinary Symptoms: No Dysuria Musculoskeletal: No Back Pain, No Neck Pain Skin: No Rash Neurological: No Dizziness, No Focal Weakness, No Sensory Changes Psychological: No Symptoms Endocrine: No Symptoms All Other Systems: Reviewed and Negative <NAT GARCÍA - Last Filed: 10/28/21 06:52> - Past Medical History Pertinent Past Medical History: Yes Neurological History: Peripheral Neuropathy ENT History: No Pertinent History Cardiac History: No Pertinent History Respiratory History: Asthma Endocrine Medical History: Diabetes Type II Musculoskeletal History: Arthritis, Fractures GI Medical History: Gallbladder Disease, Hemorrhoids History: No Pertinent History Psycho-Social History: Anxiety, Depression Female Reproductive Disorders: Menstrual Problems Other Medical History: celiac disease - Past Surgical History Past Surgical History: Yes Neuro Surgical History: No Pertinent History Cardiac: No Pertinent History Respiratory: No Pertinent History Gastrointestinal: No Pertinent History, Appendectomy, Cholecystectomy Genitourinary: No Pertinent History Musculoskeletal: No Pertinent History Female Surgical History: Other Other Surgical History: age 17 had exploratory to check ovaries - Social History Smoking Status: Current every day smoker How long have you smoked: 23 years Exposure to second hand smoke: Yes Drug Use: none Patient Lives Alone: No Significant Family History: no pertinent family hx <NAT GARCÍA Filed: 10/28/21 06:52> - Physical Exam General Appearance: moderate distress Eye Exam: PERRL/EOMI, eyes nml inspection Ears, Nose, Throat Exam: normal ENT inspection, TMs normal, pharynx normal, moist mucous membranes Neck Exam: normal inspection, non-tender, supple, full range of motion Respiratory Exam: respiratory distress, stridor Cardiovascular Exam: regular rate/rhythm, normal heart sounds, normal peripheral pulses Gastrointestinal/Abdomen Exam: soft, normal bowel sounds, No tenderness, No mass Back Exam: normal inspection, normal range of motion, No CVA tenderness, No vertebral tenderness Extremity Exam: normal inspection, normal range of motion, pelvis stable Neurologic Exam: confusion, intoxicated appearance, other (Patient seems to be altered mentally) Skin Exam: normal color, warm, dry, No rash Lymphatic Exam: No adenopathy SpO2 Interpretation: normal SpO2: 96 O2 Delivery: Room Air <NAT GARCÍA Filed: 10/28/21 06:52> - Nursing Vital Signs Nursing Vital Signs: Initial Vital Signs Temperature 96.9 F 10/28/21 06:28 Pulse Rate 73 10/28/21 06:28 Respiratory Rate 10 L 10/28/21 06:28 Blood Pressure 127/73 10/28/21 06:28 O2 Sat by Pulse Oximetry 100 10/28/21 06:28 Pain Scale Pain Intensity 0 - Course Nursing assessment & vital signs reviewed: Yes EKG Interpreted by Me: RATE (81), Sinus Rhythm, NORMAL AXIS, NORMAL INTERVALS, NORMAL QRS, NORMAL ST-T <NAT GARCÍA Filed: 10/28/21 06:52> Ordered Tests: Active Orders 24 hr Category Date Time Status Clean Catch Urine Specimen STAT Care 10/28/21 06:40 Active EKG-ER Only STAT Care 10/28/21 06:40 Active IV Insertion STAT Care 10/28/21 06:40 Active NPO (ED) STAT Care 10/28/21 06:39 Active CHEST 1 VIEW (PORTABLE) Stat Exams 10/28/21 06:41 Completed HEAD WITHOUT CONTRAST [CT] Stat Exams 10/28/21 06:43 Completed ACETAMINOPHEN Stat Lab 10/28/21 06:45 Received AMYLASE Stat Lab 10/28/21 06:45 Completed CBC W DIFF Stat Lab 10/28/21 06:45 Completed CMP Stat Lab 10/28/21 06:45 Completed D-DIMER QUANTITATIVE Stat Lab 10/28/21 06:45 Received ETHYL ALCOHOL Stat Lab 10/28/21 06:45 Received LIPASE Stat Lab 10/28/21 06:45 Completed Lactic Acid Urgent Lab 10/28/21 06:44 Completed POCT GLUCOSE Stat Lab 10/28/21 06:54 Completed PROTIME WITH INR Stat Lab 10/28/21 06:45 Completed SALICYLATE Stat Lab 10/28/21 06:45 Received TROPONIN Q3H Lab 10/28/21 06:45 Completed TROPONIN Q3H Lab 10/28/21 09:45 Ordered TROPONIN Q3H Lab 10/28/21 12:45 Ordered TROPONIN Q3H Lab 10/28/21 15:45 Ordered TROPONIN Q3H Lab 10/28/21 18:45 Ordered TSH, 3RD Generation Stat Lab 10/28/21 08:33 Ordered UA W/RFX CULTURE Stat Lab 10/28/21 Ordered Urine Triage Profile Stat Lab 10/28/21 06:40 Ordered Medication Summary Generic Name Dose Route Start Last Admin Trade Name Freq PRN Reason Stop Dose Admin Sodium Chloride 1,000 mls @ 999 mls/hr 10/28/21 08:33 10/28/21 08:51 Sodium Chloride 0.9% 1000 Ml IV 10/28/21 09:33 999 mls/hr .Q1H1M STA Administration Discontinued Medications Generic Name Dose Route Start Last Admin Trade Name Freq PRN Reason Stop Dose Admin Sodium Chloride 1,000 mls @ 999 mls/hr 10/28/21 06:40 10/28/21 07:56 Sodium Chloride 0.9% 1000 Ml IV 10/28/21 07:40 Infused .Q1H1M STA Infusion Sodium Chloride 1,000 mls @ 999 mls/hr 10/28/21 06:43 06/12/22 06:55 Sodium Chloride 0.9% 1000 Ml IV 10/28/21 07:43 Not Given .Q1H1M STA Sodium Chloride Confirm 10/28/21 06:50 Sodium Chloride 0.9% 1000 Ml Administered 10/28/21 06:51 Dose 1,000 mls @ ud .ROUTE .STK-MED ONE Sodium Chloride Confirm 10/28/21 08:49 Sodium Chloride 0.9% 1000 Ml Administered 10/28/21 08:50 Dose 1,000 mls @ ud .ROUTE .STK-MED ONE Lab/Rad Data: Laboratory Result Diagrams 10/28/21 06:45 10/28/21 06:45 Laboratory Results 10/28/21 10/28/21 10/28/21 Range/Units 06:54 06:45 06:45 WBC (4.0-10.5) x10^3/uL RBC (4.1-5.4) x10^6/uL Hgb (12.0-16.0) g/dL Hct (35-47) % MCV (78-100) fL MCH (26-32) pg MCHC (32-36) g/dL RDW (11.5-14.0) % Plt Count (150-450) x10^3/uL MPV (7.5-11.0) fL Gran % (36.0-66.0) % Immature Gran % (Auto) (0.00-0.4) % Nucleat RBC Rel Count (0.00-0.1) % Eos # (Auto) (0-0.5) x10^3/uL Immature Gran # (Auto) (0.00-0.03) x10^3u/L Absolute Lymphs (auto) (1.0-4.6) x10^3/uL Absolute Monos (auto) (0.0-1.3) x10^3/uL Absolute Nucleated RBC (0.00-0.01) x10^3u/L Lymphocytes % (24.0-44.0) % Monocytes % (0.0-12.0) % Eosinophils % (0.00-5.0) % Basophils % (0.0-0.4) % Absolute Granulocytes (1.4-6.9) x10^3/uL Basophils # (0-0.4) x10^3/uL PT 12.2 (9.4-12.5) SECONDS INR 1.17 (0.8-3.0) Sodium (137-145) mmol/L Potassium (3.5-5.1) mmol/L Chloride (98-107) mmol/L Carbon Dioxide (22-30) mmol/L Anion Gap (5-15) MEQ/L BUN (7-17) mg/dL Creatinine (0.52-1.04) mg/dL Estimated GFR ML/MIN Glucose (74-106) mg/dL POC Glucometer 121 H (74 to 106) mg/dL Lactic Acid (0.4-2.0) Calcium (8.4-10.2) mg/dL Total Bilirubin (0.2-1.3) mg/dL AST (14-36) U/L ALT (0-35) U/L Alkaline Phosphatase (38-126) U/L Troponin I < 0.012 (0.000-0.034) ng/mL Serum Total Protein (6.3-8.2) g/dL Albumin (3.5-5.0) g/dL Amylase (30-110) U/L Lipase (23-300) U/L 10/28/21 10/28/21 10/28/21 Range/Units 06:45 06:45 06:44 WBC 10.9 H (4.0-10.5) x10^3/uL RBC 4.45 (4.1-5.4) x10^6/uL Hgb 12.9 (12.0-16.0) g/dL Hct 42.3 (35-47) % MCV 95.1 (78-100) fL MCH 29.0 (26-32) pg MCHC 30.5 L (32-36) g/dL RDW 14.5 H (11.5-14.0) % Plt Count 170 (150-450) x10^3/uL MPV 9.5 (7.5-11.0) fL Gran % 76.4 H (36.0-66.0) % Immature Gran % (Auto) 0.3 (0.00-0.4) % Nucleat RBC Rel Count 0.0 (0.00-0.1) % Eos # (Auto) 0.08 (0-0.5) x10^3/uL Immature Gran # (Auto) 0.03 (0.00-0.03) x10^3u/L Absolute Lymphs (auto) 1.75 (1.0-4.6) x10^3/uL Absolute Monos (auto) 0.68 (0.0-1.3) x10^3/uL Absolute Nucleated RBC 0.00 (0.00-0.01) x10^3u/L Lymphocytes % 16.1 L (24.0-44.0) % Monocytes % 6.3 (0.0-12.0) % Eosinophils % 0.7 (0.00-5.0) % Basophils % 0.2 (0.0-0.4) % Absolute Granulocytes 8.32 H (1.4-6.9) x10^3/uL Basophils # 0.02 (0-0.4) x10^3/uL PT (9.4-12.5) SECONDS INR (0.8-3.0) Sodium 140 (137-145) mmol/L Potassium 4.9 (3.5-5.1) mmol/L Chloride 98 (98-107) mmol/L Carbon Dioxide 26 (22-30) mmol/L Anion Gap 20.7 H (5-15) MEQ/L BUN 32 H (7-17) mg/dL Creatinine 2.75 H (0.52-1.04) mg/dL Estimated GFR 19.4 ML/MIN Glucose 121 H (74-106) mg/dL POC Glucometer (74 to 106) mg/dL Lactic Acid 2.7 H (0.4-2.0) Calcium 9.4 (8.4-10.2) mg/dL Total Bilirubin 0.40 (0.2-1.3) mg/dL AST 27 (14-36) U/L ALT 22 (0-35) U/L Alkaline Phosphatase 106 (38-126) U/L Troponin I (0.000-0.034) ng/mL Serum Total Protein 7.3 (6.3-8.2) g/dL Albumin 4.3 (3.5-5.0) g/dL Amylase 75 (30-110) U/L Lipase 59 (23-300) U/L - Progress Progress: improved, re-examined Discussed with DrLeticia: Nelson Will see patient in: hospital (observation) Counseled pt/family regarding: lab results, diagnosis, rad results <JOYCE DONALDSON - Last Filed: 10/28/21 08:57> - Progress Progress Note: 10/28/21 08:54 Patient is checked out to me at shift change from Dr. García with pending work- up. Patient presented with altered mental status, confusion, more sleepiness since yesterday afternoon. During my evaluation patient is sleepy but easily arousable and cognizant with most of conversation but slow. Patient work-up showed acute renal failure with a creatinine of 2.75 with a baseline of 0.7. She already have a liter bolus and will give another liter bolus and continue with hydration. CT head is negative for any acute findings. Chest x-ray no acute cardiopulmonary findings. Questionable concern of patient family with possible overdose which could be unintentional as she might have forgotten that she has taken pills already which patient clearly denies to have's any such thing. I think patient's renal failure is slowing clearance of some medication which she is on causing her to have confusion and sleepiness. I have discussed with patient and family in detail about admitting her to the hospital, initially she was reluctant but agreeable now. Discussed with Dr. Armenta and patient is excepted for admission. (JOYCE DONALDSON) - Departure Departure Disposition: Home Critical Care Time: No <NAT GARCÍA - Last Filed: 10/28/21 06:52> - Departure Departure Disposition: Observation <JOYCE DONALDSON - Last Filed: 10/28/21 08:57> - Departure Clinical Impression: Mental status alteration, Acute renal failure Condition: Fair Referrals: ASHLEY ARMENTA [Primary Care Provider] - Follow up/PCP as directed
[2021-10-28 07:12] LABS: Absolute Neutrophil Ct (ANC) 8.32 x10^3/uL (1.4-6.9); Basophil (Absolute #) 0.02 x10^3/uL (0-0.4); Eosinophil % 0.7 % (0.00-5.0); Eosinophil (Absolute #) 0.08 x10^3/uL (0-0.5); Hematocrit 42.3 % (35-47); Hemoglobin 12.9 g/dL (12.0-16.0); Lymphocyte (Absolute #) 1.75 x10^3/uL (1.0-4.6); Lymphocytes % 16.1 % (24.0-44.0); Mean Cell Volume 95.1 fL (78-100); Mean Corpuscular Hgb Concent. 30.5 g/dL (32-36); Mean Platelet Volume 9.5 fL (7.5-11.0); Monocyte (Absolute #) 0.68 x10^3/uL (0.0-1.3); Monocytes % 6.3 % (0.0-12.0); Neutrophil % 76.4 % (36.0-66.0); Platelet Count 170 x10^3/uL (150-450); Red Blood Count 4.45 x10^6/uL (4.1-5.4); Red Cell Distribution Width 14.5 % (11.5-14.0); White Blood Count 10.9 x10^3/uL (4.0-10.5)
[2021-10-28 07:19] LABS: INR 1.17 (0.8-3.0); PROTIME 12.2 SECONDS (9.4-12.5)
[2021-10-28 07:57] LABS: ALBUMIN 4.3 g/dL (3.5-5.0); ANION GAP 20.7 MEQ/L (5-15); BILIRUBIN,TOTAL 0.4 mg/dL (0.2-1.3); Calcium 9.4 mg/dL (8.4-10.2); Creatinine 1 2.75 mg/dL (0.52-1.04); EST GLOMERULAR FILTRATION RATE 19.4 ML/MIN; Potassium 4.9 mmol/L (3.5-5.1); Total Protein 7.3 g/dL (6.3-8.2)
--- NOTE | 2021-10-28 08:08 | XRAY ---
Indication: Confusion. Altered mental status. Comparison: August 03, 2017. Portable chest remains hyperinflated and clear. Heart not enlarged. Bony thorax intact again with mild degenerative changes. No new/acute findings.
--- NOTE | 2021-10-28 08:10 | XRAY ---
Indication: Acute mental status change. Confusion. Multiple contiguous axial images obtained through the head without contrast. Comparison: None Base of brain degraded by beam artifact from patient's dental amalgams. No acute intracranial hemorrhage, abnormal extra-axial fluid collection, or mass effect. Fourth ventricle is midline without hydrocephalus. Love-white matter differentiation preserved. Bony calvarium intact. Paranasal sinuses and mastoid air cells are clear. Impression: Limited exam due to beam artifact. Remaining CT head without contrast exam grossly negative. Comment: Preliminary interpretation made by [facility]. No critical discrepancy.
[2021-10-28 10:08] LABS: INFLUENZA A NEGATIVE (NEGATIVE); INFLUENZA B NEGATIVE (NEGATIVE); RESPIRATORY SYNCTIAL VIRUS NEGATIVE (Negative); SARS-CoV-2 Xpert Express NEGATIVE (NEGATIVE)
[2021-10-28] MEDS ORDERED: DUONEB 0.5-3 MG/3 ml Neb IH PRN (10:21)
[2021-10-28] MEDS ORDERED: Zofran 4 MG/2 ML VIAL IV PRN (10:21)
[2021-10-28] MEDS ORDERED: TYLENOL 325 MG PO PRN (10:21)
[2021-10-28] MEDS ORDERED: TYLENOL EXTRA STRENGTH 500 MG PO PRN (10:58)
[2021-10-28 11:05] LABS: ACETAMINOPHEN < 10 ug/ml (10-30); ETHYL ALCOHOL < 10 mg/dL (0-10); SALICYLATE < 1.0 mg/dL (2-20)
[2021-10-28] MEDS ORDERED: HUMALOG SQ PRN (12:00)
[2021-10-28] MEDS ORDERED: NON-FORMULARY ITEM (Gabapentin [Gabapentin] 600 MG Tablet) PO PRN (12:10)
[2021-10-28] MEDS ORDERED: NON-FORMULARY ITEM (Non-Formulary Drug [Non-Formulary Item] 1 EACH Each) SCH (12:15)
[2021-10-28] MEDS ORDERED: NEURONTIN PO PRN (12:25)
[2021-10-28] MEDS ORDERED: PATIENT OWN MEDICATION IV PRN (12:29)
[2021-10-28] MEDS: Pepcid 20 MG VIAL IV SCH ×2 (12:48→22:02)
[2021-10-28] MEDS: Toprol-Xl 25MG Tablets PO SCH (12:48)
[2021-10-28] MEDS: Micronase 5 MG PO SCH ×2 (12:48→17:24)
[2021-10-28] MEDS: Paxil 20 MG PO SCH (12:49)
[2021-10-28 13:46] LABS: Bacteria RARE /HPF (NEGATIVE); Epithelial Cells RARE /HPF (FEW); Mucus SLIGHT /HPF (NEGATIVE); RBC 0-2 /HPF (0-2); WBC 0-2 /HPF (0-5)
[2021-10-28 13:47] LABS: Appearance CLEAR (CLEAR); Bilirubin NEGATIVE (NEGATIVE); Glucose NEGATIVE (NEGATIVE); Ketones NEGATIVE (NEGATIVE); Nitrite NEGATIVE (NEGATIVE); Ph 5.5 (5-6); Protein,Urine Dip 30 (Negative); RBC NEGATIVE Ery/ul (0-5); Urine Cultured Indicated? NO; Urobilinogen 0.2 mg/dL (0-1)
[2021-10-28 13:48] LABS: Dipstick done @ ? MAIN LAB
[2021-10-28 13:59] LABS: Amphetamine,Urine NEGATIVE (NEGATIVE); Barbiturate,Urine NEGATIVE (NEGATIVE); Benzodiazepine,Urine POSITIVE (NEGATIVE); Methadone,Urine NEGATIVE (NEGATIVE); Opiate,Urine POSITIVE (NEGATIVE); PCP,Urine NEGATIVE (NEGATIVE); THC,Urine NEGATIVE (NEGATIVE)
[2021-10-28 14:09] LABS: Cocaine,Urine NEGATIVE (NEGATIVE)
[2021-10-28] MEDS: xanAX 0.25 MG PO SCH ×2 (14:35→22:03)
[2021-10-28] MEDS: Wellbutrin XL 150 MG PO SCH ×2 (14:35→22:03)
[2021-10-28] MEDS ORDERED: Wellbutrin XL 150 MG PO SCH (15:00)
[2021-10-28] MEDS ORDERED: XANAX 1 MG PO SCH ×2 (15:00)
[2021-10-28] MEDS: Sodium Chloride 0.9% 1000 ML 1,000 ML IV SCH (20:30)
[2021-10-28] MEDS ORDERED: Lantus Insulin SQ SCH (22:00)
[2021-10-28] MEDS ORDERED: NON-FORMULARY ITEM (Trazodone Hcl [Trazodone Hcl] 100 MG Tablet) PO SCH (22:00)
[2021-10-28] MEDS ORDERED: NON-FORMULARY ITEM (Insulin Glargine,Hum.Rec.Anlog [Toujeo Solostar] 300 UNIT/ML Insuln.Pe SQ SCH (22:00)
[2021-10-28] MEDS ORDERED: DESYREL 50 MG PO SCH (22:00)
[2021-10-29] MEDS: Sodium Chloride 0.9% 1000 ML 1,000 ML IV SCH (04:21)
[2021-10-29 05:01] LABS: Absolute Neutrophil Ct (ANC) 2.63 x10^3/uL (1.4-6.9); Basophil (Absolute #) 0.01 x10^3/uL (0-0.4); Eosinophil % 0.8 % (0.00-5.0); Eosinophil (Absolute #) 0.04 x10^3/uL (0-0.5); Hematocrit 38.6 % (35-47); Hemoglobin 12.1 g/dL (12.0-16.0); Lymphocyte (Absolute #) 1.95 x10^3/uL (1.0-4.6); Lymphocytes % 39.1 % (24.0-44.0); Mean Cell Volume 93.5 fL (78-100); Mean Corpuscular Hemoglobin 29.3 pg (26-32); Mean Corpuscular Hgb Concent. 31.3 g/dL (32-36); Mean Platelet Volume 9.5 fL (7.5-11.0); Monocyte (Absolute #) 0.35 x10^3/uL (0.0-1.3); Neutrophil % 52.7 % (36.0-66.0); Platelet Count 136 x10^3/uL (150-450); Red Blood Count 4.13 x10^6/uL (4.1-5.4); Red Cell Distribution Width 14.2 % (11.5-14.0)
[2021-10-29 05:32] LABS: ALBUMIN 4.1 g/dL (3.5-5.0); ALKALINE PHOSPHATASE 93 U/L (38-126); ANION GAP 12.9 MEQ/L (5-15); BLOOD UREA NITROGEN 18 mg/dL (7-17); CHLORIDE 105 mmol/L (98-107); Calcium 9.2 mg/dL (8.4-10.2); Carbon Dioxide 27 mmol/L (22-30); Creatinine 1 0.93 mg/dL (0.52-1.04); EST GLOMERULAR FILTRATION RATE > 60.0 ML/MIN; Glucose 80 mg/dL (74-106); Potassium 4.6 mmol/L (3.5-5.1); SGOT/AST 27 U/L (14-36); SGPT/ALT 19 U/L (0-35); SODIUM 140 mmol/L (137-145); Total Protein 7.1 g/dL (6.3-8.2)
[2021-10-29 07:27] VITALS: BP 141/63; PULSE 71
[2021-10-29 08:16] VITALS: O2SAT 90
[2021-10-29] MEDS: Micronase 5 MG PO SCH (08:31)
[2021-10-29] MEDS: Pepcid 20 MG VIAL IV SCH (09:27)
[2021-10-29] MEDS: Toprol-Xl 25MG Tablets PO SCH (09:27)
[2021-10-29] MEDS: Paxil 20 MG PO SCH (09:27)
[2021-10-29] MEDS: Wellbutrin XL 150 MG PO SCH (09:28)
[2021-10-29] MEDS: xanAX 0.25 MG PO SCH (09:28)
[2021-10-29] MEDS ORDERED: NON-FORMULARY ITEM (Atorvastatin Calcium [Atorvastatin Calcium] 20 MG Tablet) PO SCH (10:00)
[2021-10-29] MEDS ORDERED: ZOCOR 20MG PO SCH (10:00)
--- NOTE | 2021-10-30 09:18 | SSS ---
DISCHARGE DIAGNOSES: 1) ACUTE KIDNEY INJURY. 2) DEHYDRATION. 3) CHANGE IN MENTAL STATUS. HISTORY: The patient is a 51-year-old white female who is seen due to confusion. The patient also noticed she was somewhat short of breath. On evaluation when I saw the patient, she reported that she had been taking 800 mg of ibuprofen every 8 hours for chronic headache issues. The patient had been noted to have hyperkalemia a few days ago in the office but her creatinine was normal at that point of 0.97. The patient's evaluation in the emergency room revealed that she had an acute kidney injury with her creatinine being significantly elevated at 2.75 with a BUN of 32. The patient takes multiple home medications. PAST MEDICAL/SURGICAL HISTORY: She has problems with anxiety, depression, hyperlipidemia and hypertension. HOME MEDICATIONS: Alprazolam 0.5 mg t.i.d., atorvastatin 20 mg a day, baclofen 20 mg t.i.d., benazepril 20 mg a day, bupropion XL 150 mg t.i.d., gabapentin 600 mg t.i.d., glyburide 10 mg twice a day, insulin 20 units in the evening, 20 units t.i.d. of Humalog before meals, Metformin 500 mg tablets 2 tablets twice a day, metoprolol 25 mg a day. She has a Dilaudid pain pump, paroxetine at 20 mg a day, trazodone 100 mg at night. ALLERGIES: CODEINE. SULFA. GLUTEN. PHYSICAL EXAMINATION: The patient's physical examination revealed a well-nourished, well-developed 51-year-old white female in no distress. Her vital signs in the emergency room revealed temperature 96.9F, pulse 73, respiratory rate 10 and blood pressure 127/73. O2 saturation was 100%. HEENT: Normocephalic, atraumatic. Pupils equal round reactive to light. Extraocular movements intact. Oropharynx is pink and moist. NECK: Supple without lymphadenopathy, thyromegaly or JVD. CHEST: Clear to auscultation. HEART: Regular rate and rhythm without murmurs, rubs or gallops. ABDOMEN: Soft. No palpable masses. EXTREMITIES: Without cyanosis, clubbing or edema. NEUROLOGIC: The patient is currently alert and oriented x3 with no focal deficits noted. LAB DATA AND TESTS: Her laboratory studies otherwise showed her CBC to be normal. Acetaminophen and salicylates were normal. UA normal. Troponin was normal. Her urine drug screen was positive for benzodiazepine and opiates. HOSPITAL COURSE: The patient was admitted to the [facility] and given IV fluid flushes with boluses. The patient had instructions to quit taking any pain medicine other than Tylenol for pain. 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 She did have a CT scan of the head which was grossly normal. The patient's neurologic status with neural status change but essentially normal since I had seen her. The thought is that it is likely she took additional medications without being aware of it as she was somewhat confused and takes the pain pump with her kidney functions deteriorating her other medicine accumulating in her system making it worse. During her stay in the hospital, we discontinued her baclofen and benazepril. She was discontinued on her metformin and followed with insulin on sliding scale coverage. She was cut back on alprazolam from 0.5 to 0.25 and bupropion was cut to twice a day instead of three times a day. Gabapentin was also cut in half. The patient will be seen in follow up in the office in one week. It was noted at this time that her creatinine had normalized at 2.93 with a BUN of 18 and the rest of her metabolic panel at this time was completely normal. Again, the patient will be followed up in the office in one week, taking the above medication changes we made for her. She will take her usual medications as noted above.
== END 2021-10-29 09:47 | disposition home or self-care (01) ==
LOC: ED 06:21 → MED SURG 10:20
PROVIDERS: ADMIT Family Medicine; ATTEND Family Medicine
DX: N17.9 Acute kidney failure, unspecified (principal); E86.0 Dehydration; R41.82 Altered mental status, unspecified; E11.9 Type 2 diabetes mellitus without complications; R51.9 Headache, unspecified; F41.9 Anxiety disorder, unspecified; Z79.899 Other long term (current) drug therapy; Z20.828 Contact with and (suspected) exposure to other viral communicable diseases
CPT/HCPCS: 0241U; 36415; 70450; 71045; 80053; 80307; 81015; 82150; 82947; 83036; 83605; 83690; 84443; 84484; 85025; 85379; 85610; 93005; 94762; 96360; 96374; 99285; 93268; A9270-GY; G0378; G0480

== ENCOUNTER 2022-06-13 15:10 | Emergency (ER) | payer BC ==
[2022-06-13] MEDS ORDERED: Sodium Chloride 0.9% 1000 ML 1,000 ML IV STA (15:54)
[2022-06-13] MEDS ORDERED: ANTIVERT 25 MG PO ONE (15:54)
[2022-06-13] MEDS ORDERED: BENADRYL 50 MG/ML IV ONE (15:55)
[2022-06-13] MEDS ORDERED: ANTIVERT 25 MG ONE (16:19)
[2022-06-13] MEDS ORDERED: BENADRYL 50 MG/ML ONE (16:20)
[2022-06-13] MEDS ORDERED: Sodium Chloride 0.9% 1000 ML 1,000 ML ONE (16:20)
--- NOTE | 2022-06-13 16:20 | XRAY ---
Indication: Vertigo. Comparison: October 28, 2021 Portable chest remains hyperinflated and clear. Heart not enlarged. Bony thorax intact again with mild degenerative changes. No new/acute findings.
[2022-06-13 16:42] LABS: Absolute Neutrophil Ct (ANC) 9.46 x10^3/uL (1.4-6.9); BASOPHIL % 0.1 % (0.0-0.4); Basophil (Absolute #) 0.01 x10^3/uL (0-0.4); Eosinophil % 0.2 % (0.00-5.0); Eosinophil (Absolute #) 0.03 x10^3/uL (0-0.5); Hematocrit 39.1 % (35-47); Hemoglobin 12.5 g/dL (12.0-16.0); IMMATURE GRAN # 0.06 x10^3u/L (0.00-0.03); IMMATURE GRAN % 0.5 % (0.00-0.4); Lymphocyte (Absolute #) 2.55 x10^3/uL (1.0-4.6); Mean Cell Volume 91.6 fL (78-100); Mean Corpuscular Hemoglobin 29.3 pg (26-32); Mean Platelet Volume 9.2 fL (7.5-11.0); Monocyte (Absolute #) 0.62 x10^3/uL (0.0-1.3); Monocytes % 4.9 % (0.0-12.0); Neutrophil % 74.3 % (36.0-66.0); Platelet Count 199 x10^3/uL (150-450); Red Blood Count 4.27 x10^6/uL (4.1-5.4); Red Cell Distribution Width 14.4 % (11.5-14.0); White Blood Count 12.7 x10^3/uL (4.0-10.5)
[2022-06-13 16:58] LABS: ALBUMIN 4.5 g/dL (3.5-5.0); ANION GAP 11.7 MEQ/L (5-15); BILIRUBIN,TOTAL 0.3 mg/dL (0.2-1.3); Calcium 8.7 mg/dL (8.4-10.2); Creatinine 1 1.67 mg/dL (0.52-1.04); EST GLOMERULAR FILTRATION RATE 34.5 ML/MIN; MAGNESIUM 1.6 mg/dL (1.6-2.3); Potassium 4.7 mmol/L (3.5-5.1); Total Protein 7.5 g/dL (6.3-8.2)
[2022-06-13 17:24] VITALS: BP 123/55; PULSE 96; O2SAT 100
[2022-06-13 17:41] LABS: Appearance Cloudy (Clear); Bacteria Many /HPF (None Seen); Bilirubin Negative (Negative); Blood Moderate (Negative); Epithelial Cells Moderate /HPF (None Seen); Glucose, Urine Negative (Negative); Ketones Negative (Negative); Leukocyte Esterase Small (Negative); Nitrite Negative (Negative); Protein,Urine Dip 100 (Negative); RBC 0-2 /HPF (0-5); Urobilinogen 0.2 mg/dL (0.2); WBC 51-100 /HPF (0-5)
[2022-06-13 17:42] LABS: ADD URINE CULTURE? YES (NO); Hyaline Casts 0-2 /LPF (0-2)
--- NOTE | 2022-06-13 17:43 | ERPHSYRPT ---
- History of Present Illness Time Seen by Provider: 06/13/22 15:19 Source: patient Exam Limitations: no limitations Patient Subjective Stated Complaint: pt here Triage Nursing Assessment: pt here for dizziness since last night, she states she has been out of pain pump meds untill recently, some nausea, she has not taking her meds Physician History: 51 years old female with multiple medical problems including anxiety, depression, chronic pain, hypertension, hyperlipidemia, diabetes mellitus, off-and-on vertigo/dizziness who was recently out of for Dilaudid pain pump medication for almost a week with some withdrawal symptoms with nausea and occasional vomiting, got filled few days ago presented with feeling vertiginous symptoms with room spinning sensation with associated nausea and multiple episodes of nonprojectile, nonbilious vomiting since yesterday. Patient feels weak fatigued tired and dehydrated. Denies any abdominal pain. No focal numbness tingling or weakness reported. Denies any visual disturbance. It gets worse with movements head and neck and better with being still. Reports having similar symptoms multiple times in the past. Timing/Duration: yesterday, gradual onset, worse Severity: moderate Character of Deficits: none Deficits: no difficulties Baseline/Normal Cognition: alert oriented x 3 Current Cognition: alert oriented x 3 Baseline Gait: walks w/o assistance Associated Symptoms: fatigue, nausea, vomiting, No confusion, No loss of consciousness, No weakness, No insomnia, No numbness/tingling in legs/feet, No paresthesia, No slurred speech, No trouble walking, No chest pain, No headache Allergies/Adverse Reactions: codeine [Codeine] Allergy (Severe, Verified 06/13/22 15:22) chest pain Sulfa (Sulfonamide Antibiotics) [Sulfa(Sulfonamide Antibiotics)] Allergy (Intermediate, Verified 06/13/22 15:22) Difficulty Breathing gluten Adverse Reaction (Verified 06/13/22 15:22) Home Medications: ALPRAZolam [Xanax] 0.5 mg PO TID 01/31/12 [History] Glyburide 5 mg [Micronase 5 MG] 10 mg PO BID 01/31/12 [History] Atorvastatin Calcium 20 mg PO DAILY 10/28/21 [History] Gabapentin 600 mg PO TID PRN 10/28/21 [History] Insulin Glargine,Hum.rec.anlog [Ceasar Miranda] 20 units SQ HS 10/28/21 [History] Insulin Lispro [Humalog Kwikpen] 20 unit SQ TID 10/28/21 [History] Metoprolol Succinate 25 mg PO DAILY 10/28/21 [History] Non-Formulary Drug [Non-Formulary Item] 1 each .ROUTE UD 10/28/21 [History] PARoxetine HCL [Paroxetine HCl] 20 mg PO DAILY 10/28/21 [History] Trazodone HCl 100 mg PO HS 10/28/21 [History] Baclofen 10 mg [Lioresal 10 mg] 10 mg PO TID 06/13/22 [History] Benazepril HCl [Lotensin] 1 ea DAILY 06/13/22 [History] Bupropion HCl Xl 150 mg [Wellbutrin XL 150 MG] 1 ea DAILY 06/13/22 [Hist ory] Glyburide 5 mg [Micronase 5 MG] 5 mg PO DAILY 06/13/22 [History] Meclizine HCl [Antivert] 25 mg PO DAILY 06/13/22 [History] Metformin HCl [Metformin HCl ER] 1,000 mg BID 06/13/22 [History] PARoxetine HCL [Paxil] 10 mg PO DAILY 06/13/22 [History] Hx Tetanus, Diphtheria Vaccination/Date Given: No Hx Influenza Vaccination/Date Given: No Hx Pneumococcal Vaccination/Date Given: No Immunizations Up to Date: Yes Travel Risk - International Travel Have you traveled outside of the country in past 3 weeks: No - Coronavirus Screening Are you exhibiting any of the following symptoms?: No Close contact with a COVID-19 positive Pt in past 14-21 Days: No - Vaccine Status Have you recieved a Covid-19 vaccination: Yes Structural 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 - Vaccination Dates Date of 2cond Vaccination (if applicable): unknown - Review of Systems Constitutional: Fatigue, Weakness Eyes: No Symptoms Ears, Nose, & Throat: No Symptoms Respiratory: No Symptoms Cardiac: No Symptoms Abdominal/Gastrointestinal: No Symptoms Genitourinary Symptoms: No Symptoms Musculoskeletal: Arthralgias Skin: No Symptoms Neurological: Dizziness Psychological: Anxiety Endocrine: No Symptoms Hematologic/Lymphatic: No Symptoms Immunological/Allergic: No Symptoms - Past Medical History Pertinent Past Medical History: Yes Neurological History: Peripheral Neuropathy ENT History: No Pertinent History Cardiac History: No Pertinent History Respiratory History: Asthma Endocrine Medical History: Diabetes Type II Musculoskeletal History: No Pertinent History GI Medical History: Gallbladder Disease History: No Pertinent History Psycho-Social History: Anxiety, Depression Female Reproductive Disorders: No Pertinent History Other Medical History: celiac disease - Past Surgical History Past Surgical History: Yes Neuro Surgical History: No Pertinent History Cardiac: No Pertinent History Respiratory: No Pertinent History Gastrointestinal: Appendectomy, Cholecystectomy Genitourinary: No Pertinent History Musculoskeletal: No Pertinent History Female Surgical History: Other Other Surgical History: age 17 had exploratory to check ovaries, 2015 Gallbladder,pain pump - Social History Smoking Status: Current some day smoker How long have you smoked: 23 years Exposure to second hand smoke: Yes Drug Use: none Patient Lives Alone: No Significant Family History: no pertinent family hx - Nursing Vital Signs Nursing Vital Signs: Initial Vital Signs Temperature 97 F 06/13/22 15:34 Pulse Rate 90 06/13/22 15:34 Respiratory Rate 16 06/13/22 15:34 Blood Pressure 184/86 06/13/22 15:34 O2 Sat by Pulse Oximetry 93 L 06/13/22 15:34 Pain Scale Pain Intensity 4 - Kristopher Coma Scale Best Eye Response ([place]): (4) open spontaneously Best Verbal Response ([place]): (5) oriented Best Motor Response ([place]): (6) obeys commands Kristopher Total: 15 - Physical Exam General Appearance: no apparent distress, alert, anxiety Eye Exam: bilateral eye: normal inspection, PERRL, EOMI Ears, Nose, Throat Exam: normal ENT inspection, TMs normal, pharynx normal, moist mucous membranes Neck Exam: normal inspection, non-tender, supple, full range of motion, No meningismus Respiratory: normal breath sounds, lungs clear Cardiovascular: regular rate/rhythm, normal heart sounds Gastrointestinal: soft, normal bowel sounds, No tenderness Back Exam: normal inspection, normal range of motion Extremity Exam: normal inspection, normal range of motion, pelvis stable 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, oriented x 3, 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 Exam: normal hearing, normal speech, PERRL Coordination/Gait: normal finger to nose, normal gait, normal cerebellar function, negative Romberg's sign Motor/Sensory: no motor deficit, no sensory deficit, no pronator drift, negative Babinski's sign DTR: bicep (R): 2+, bicep (L): 2+, knee (R): 2+, knee (L): 2+ Skin Exam: normal color SpO2 Interpretation: normal SpO2: 100 O2 Delivery: Room Air - Course EKG Interpreted by Me: RATE (97), Sinus Rhythm, NORMAL AXIS, NORMAL INTERVALS, Other (Nonspecific T wave changes) Ordered Tests: Active Orders 24 hr Category Date Time Status EKG-ER Only STAT Care 06/13/22 15:54 Active IV Insertion STAT Care 06/13/22 15:54 Active Orthostatic Vital Signs STAT Care 06/13/22 15:54 Active CHEST 1 VIEW (PORTABLE) Stat Exams 06/13/22 15:54 Completed CBC W DIFF Stat Lab 06/13/22 16:30 Completed CMP Stat Lab 06/13/22 16:30 Completed CULTURE,URINE Stat Lab 06/13/22 16:14 Received Lactic Acid Stat Lab 06/13/22 15:54 Completed MAGNESIUM Stat Lab 06/13/22 16:30 Completed TROPONIN Q4H Lab 06/13/22 16:30 Completed TROPONIN Q4H Lab 06/13/22 20:00 Ordered TROPONIN Q4H Lab 06/14/22 00:00 Ordered UA W/RFX UR CULTURE Stat Lab 06/13/22 16:14 Completed Medication Summary Discontinued Medications Generic Name Dose Route Start Last Admin Trade Name Sauloq PRN Reason Stop Dose Admin Diphenhydramine HCl 25 mg 06/13/22 15:55 06/13/22 16:25 Diphenhydramine Hcl 50 Mg/Ml Vial IV 06/13/22 15:56 25 mg STAT ONE Administration Diphenhydramine HCl Confirm 06/13/22 16:20 Diphenhydramine Hcl 50 Mg/Ml Vial Administered 06/13/22 16:21 Dose 50 mg .ROUTE .STK-MED ONE Droperidol 1.25 mg 06/13/22 15:54 06/13/22 16:24 Droperidol 5 Mg/2 Ml Vial IV 06/13/22 15:55 1.25 mg STAT ONE Administration Droperidol Confirm 06/13/22 16:19 Droperidol 5 Mg/2 Ml Vial Administered 06/13/22 16:20 Dose 5 mg .ROUTE .STK-MED ONE Sodium Chloride 1,000 mls @ 999 mls/hr 06/13/22 15:54 06/13/22 16:24 Sodium Chloride 0.9% 1000 Ml IV 06/13/22 16:54 999 mls/hr .Q1H1M STA Administration Sodium Chloride Confirm 06/13/22 16:20 Sodium Chloride 0.9% 1000 Ml Administered 06/13/22 16:21 Dose 1,000 mls @ ud .ROUTE .STK-MED ONE Meclizine HCl 25 mg 06/13/22 15:54 06/13/22 16:24 Meclizine Hcl 25 Mg Tablet PO 06/13/22 15:55 25 mg STAT ONE Administration Meclizine HCl Confirm 06/13/22 16:19 Meclizine Hcl 25 Mg Tablet Administered 06/13/22 16:20 Dose 25 mg .ROUTE .[facility] ONE Lab/Rad Data: Laboratory Result Diagrams 06/13/22 16:30 06/13/22 16:30 Laboratory Results 06/13/22 06/13/22 06/13/22 Range/Units 16:30 16:30 16:30 WBC 12.7 H (4.0-10.5) x10^3/uL RBC 4.27 (4.1-5.4) x10^6/uL Hgb 12.5 (12.0-16.0) g/dL Hct 39.1 (35-47) % MCV 91.6 (78-100) fL MCH 29.3 (26-32) pg MCHC 32.0 (32-36) g/dL RDW 14.4 H (11.5-14.0) % Plt Count 199 (150-450) x10^3/uL MPV 9.2 (7.5-11.0) fL Gran % 74.3 H (36.0-66.0) % Immature Gran % (Auto) 0.5 H (0.00-0.4) % Nucleat RBC Rel Count 0.0 (0.00-0.1) % Eos # (Auto) 0.03 (0-0.5) x10^3/uL Immature Gran # (Auto) 0.06 H (0.00-0.03) x10^3u/L Absolute Lymphs (auto) 2.55 (1.0-4.6) x10^3/uL Absolute Monos (auto) 0.62 (0.0-1.3) x10^3/uL Absolute Nucleated RBC 0.00 (0.00-0.01) x10^3u/L Lymphocytes % 20.0 L (24.0-44.0) % Monocytes % 4.9 (0.0-12.0) % Eosinophils % 0.2 (0.00-5.0) % Basophils % 0.1 (0.0-0.4) % Absolute Granulocytes 9.46 H (1.4-6.9) x10^3/uL Basophils # 0.01 (0-0.4) x10^3/uL Sodium 138 (137-145) mmol/L Potassium 4.7 (3.5-5.1) mmol/L Chloride 105 (98-107) mmol/L Carbon Dioxide 26 (22-30) mmol/L Anion Gap 11.7 (5-15) MEQ/L BUN 29 H (7-17) mg/dL Creatinine 1.67 H (0.52-1.04) mg/dL Estimated GFR 34.5 ML/MIN Glucose 149 H (74-106) mg/dL Lactic Acid (0.4-2.0) Calcium 8.7 (8.4-10.2) mg/dL Magnesium 1.6 (1.6-2.3) mg/dL Total Bilirubin 0.30 (0.2-1.3) mg/dL AST 37 H (14-36) U/L ALT 26 (0-35) U/L Alkaline Phosphatase 98 (38-126) U/L Troponin I < 0.012 (0.000-0.034) ng/mL Serum Total Protein 7.5 (6.3-8.2) g/dL Albumin 4.5 (3.5-5.0) g/dL Urine Color (Yellow) Urine Appearance (Clear) Urine pH (4.6-8.0) Ur Specific [place] (1.005-1.030) Urine Protein (Negative) Urine Glucose (UA) (Negative) mg/dL Urine Ketones (Negative) Urine Blood (Negative) Urine Nitrite (Negative) Urine Bilirubin (Negative) Urine Urobilinogen (0.2) mg/dL Ur Leukocyte Esterase (Negative) U Hyaline Cast (Auto) (0-2) /LPF Urine Microscopic RBC (0-5) /HPF Urine Microscopic WBC (0-5) /HPF Ur Epithelial Cells (None Seen) /HPF Urine Bacteria (None Seen) /HPF Urine Culture Reflexed (NO) 06/13/22 06/13/22 Range/Units 16:14 15:54 WBC (4.0-10.5) x10^3/uL RBC (4.1-5.4) x10^6/uL Hgb (12.0-16.0) g/dL Hct (35-47) % MCV (78-100) fL MCH (26-32) pg MCHC (32-36) g/dL RDW (11.5-14.0) % Plt Count (150-450) x10^3/uL MPV (7.5-11.0) fL Gran % (36.0-66.0) % Immature Gran % (Auto) (0.00-0.4) % Nucleat RBC Rel Count (0.00-0.1) % Eos # (Auto) (0-0.5) x10^3/uL Immature Gran # (Auto) (0.00-0.03) x10^3u/L Absolute Lymphs (auto) (1.0-4.6) x10^3/uL Absolute Monos (auto) (0.0-1.3) x10^3/uL Absolute Nucleated RBC (0.00-0.01) x10^3u/L Lymphocytes % (24.0-44.0) % Monocytes % (0.0-12.0) % Eosinophils % (0.00-5.0) % Basophils % (0.0-0.4) % Absolute Granulocytes (1.4-6.9) x10^3/uL Basophils # (0-0.4) x10^3/uL Sodium (137-145) mmol/L Potassium (3.5-5.1) mmol/L Chloride (98-107) mmol/L Carbon Dioxide (22-30) mmol/L Anion Gap (5-15) MEQ/L BUN (7-17) mg/dL Creatinine (0.52-1.04) mg/dL Estimated GFR ML/MIN Glucose (74-106) mg/dL Lactic Acid 1.0 (0.4-2.0) Calcium (8.4-10.2) mg/dL Magnesium (1.6-2.3) mg/dL Total Bilirubin (0.2-1.3) mg/dL AST (14-36) U/L ALT (0-35) U/L Alkaline Phosphatase (38-126) U/L Troponin I (0.000-0.034) ng/mL Serum Total Protein (6.3-8.2) g/dL Albumin (3.5-5.0) g/dL Urine Color Yellow (Yellow) Urine Appearance Cloudy A (Clear) Urine pH 5.0 (4.6-8.0) Ur Specific [place] 1.020 (1.005-1.030) Urine Protein 100 A (Negative) Urine Glucose (UA) Negative (Negative) mg/dL Urine Ketones Negative (Negative) Urine Blood Moderate A (Negative) Urine Nitrite Negative (Negative) Urine Bilirubin Negative (Negative) Urine Urobilinogen 0.2 (0.2) mg/dL Ur Leukocyte Esterase Small A (Negative) U Hyaline Cast (Auto) 0-2 (0-2) /LPF Urine Microscopic RBC 0-2 (0-5) /HPF Urine Microscopic WBC 51-100 A (0-5) /HPF Ur Epithelial Cells Moderate A (None Seen) /HPF Urine Bacteria Many A (None Seen) /HPF Urine Culture Reflexed YES (NO) - Progress Progress: improved, re-examined Progress Note: 06/13/22 17:41 51 years old female with multiple medical problems including anxiety, depression, chronic pain, hypertension, hyperlipidemia, diabetes mellitus, off-and-on vertigo/dizziness who was recently out of for Dilaudid pain pump medication for almost a week with some withdrawal symptoms with nausea and occasional vomiting, got filled few days ago is evaluated for vertiginous symptoms with room spinning sensation with associated nausea and multiple episodes of nonprojectile, nonbilious vomiting since yesterday. Patient feels weak fatigued tired and dehydrated. Denies any abdominal pain. No focal numbness tingling or weakness reported. Denies any visual disturbance. It gets worse with movements head and neck and better with being still. Reports having similar symptoms multiple times in the past. She is given fluids and symptomatic treatment for dizziness, on reevaluation she is feeling much better. Patient also reported she has not been taking meclizine for the last few days. She is offered CT head which she refused saying "I have CT done in the past and it was negative". EKG showed sinus rhythm with no acute ischemic changes and negative troponins. Fairly unrema rkable chemistries except for worsening of renal function from baseline 0.9- 1.67. Chest x-ray negative for any acute cardiopulmonary findings. Nonfocal neuro exam throughout stay in the ER. I have recommended observation admission and further evaluation of dizziness with CT and neuro consult but she does not want to get it done and wants to go home. She does understand the risk of going home with worsening of kidney functions leading to complete renal failure and dizziness which seems more of a peripheral vertigo could be central but she does not want to stay in the hospital or get any consultation. She is not confused or altered at all. I spent more than 25 minutes with patient and who was involved in decision making of signing paper for [facility]. Counseled pt/family regarding: lab results, diagnosis, need for follow-up, rad results, smoking cessation - Departure Departure Disposition: AMA Clinical Impression: Vertigo, Acute renal failure (ARF) Condition: Stable Critical Care Time: No Referrals: ASHLEY ARMENTA [Primary Care Provider] - Follow up/PCP as directed Instructions: Vertigo (a Type of Dizziness) (DC), Kidney Failure (DC) Additional Instructions: Drink plenty of fluids to keep yourself well-hydrated. Follow-up with primary care for reevaluation and recheck of kidney functions. Return to ER for having dizziness, numbness tingling focal weakness etc.
== END 2022-06-13 17:53 | disposition left against medical advice (07) ==
LOC: ED 15:10
DX: R42 Dizziness and giddiness (principal); N17.9 Acute kidney failure, unspecified; N39.0 Urinary tract infection, site not specified; B96.20 Unspecified Escherichia coli [E. coli] as the cause of diseases classified elsewhere; R11.2 Nausea with vomiting, unspecified; R53.1 Weakness; Z79.4 Long term (current) use of insulin; Z79.84 Long term (current) use of oral hypoglycemic drugs; Z79.899 Other long term (current) drug therapy; E11.42 Type 2 diabetes mellitus with diabetic polyneuropathy; Z72.0 Tobacco use
CPT/HCPCS: 36415; 71045; 80053; 81001; 83605; 83735; 84484; 85025; 87077; 87086; 87186; 93005; 96360; 96361; 96374; 96375; 99284; J1200; A9270-GY

== ENCOUNTER 2022-06-13 21:18 | Observation (INO) | payer BC ==
[2022-06-13] MEDS ORDERED: Sodium Chloride 0.9% 1000 ML 1,000 ML IV STA (21:37)
[2022-06-13] MEDS ORDERED: Zofran 4 MG/2 ML VIAL IV ONE (21:37)
[2022-06-13] MEDS ORDERED: Sodium Chloride 0.9% 1000 ML 1,000 ML ONE (21:52)
[2022-06-13] MEDS ORDERED: Zofran 4 MG/2 ML VIAL ONE (21:52)
[2022-06-13] MEDS ORDERED: ROCEPHIN 2 Gm-D5w 50ML BAG** 2 G/50 ML IVPB IV STA (22:03)
--- NOTE | 2022-06-13 22:08 | ERPHSYRPT ---
- History of Present Illness Time Seen by Provider: 06/13/22 21:34 Source: patient Exam Limitations: no limitations Patient Subjective Stated Complaint: dizziness, nausea, emesis, flank pain x about 1 week Triage Nursing Assessment: pt to ED for similar sx to last visit. pt states dizziness is somewhat better however now her lower back hurts which made her "worried about my kidneys." rates 4/10 dull pain that she reports she believes started from sitting in the bed earlier. ambulatory with steady gate. Physician History: 51 years old female with multiple medical problems including hypertension, hyperlipidemia, diabetes mellitus, anxiety, depression, chronic pain with Dilaudid pump, vertigo who was evaluated few hours ago in the ER with work-up positive for acute renal failure, was recommended admission but patient left AMA. Patient was given meclizine/droperidol and Benadryl along with fluids and her vertigo improved. Patient reports her dizziness is better. She walked in the ER this time as well with no difficulty ambulation and nonfocal neuro exam. Denies any chest pain palpitations or shortness of breath. Timing/Duration: yesterday, gradual onset, worse Severity: moderate Modifying Factors: Worsens With: movement Associated Symptoms: nausea, vomiting, malaise, weakness Allergies/Adverse Reactions: codeine [Codeine] Allergy (Severe, Verified 06/13/22 21:31) chest pain Sulfa (Sulfonamide Antibiotics) [Sulfa(Sulfonamide Antibiotics)] Allergy (Intermediate, Verified 06/13/22 21:31) Difficulty Breathing gluten Adverse Reaction (Verified 06/13/22 21:31) Home Medications: ALPRAZolam [Xanax] 0.5 mg PO TID 01/31/12 [History] Glyburide 5 mg [Micronase 5 MG] 10 mg PO BID 01/31/12 [History] Atorvastatin Calcium 20 mg PO DAILY 10/28/21 [History] Gabapentin 600 mg PO TID PRN 10/28/21 [History] Insulin Glargine,Hum.rec.anlog [Ceasar Burgessostraymond] 20 units SQ HS 10/28/21 [History] Insulin Lispro [Humalog Kwikpen] 20 unit SQ TID 10/28/21 [History] Metoprolol Succinate 25 mg PO DAILY 10/28/21 [History] Non-Formulary Drug [Non-Formulary Item] 1 each .ROUTE UD 10/28/21 [History] Trazodone HCl 100 mg PO HS 10/28/21 [History] Baclofen 10 mg [Lioresal 10 mg] 10 mg PO TID 06/13/22 [History] Benazepril HCl [Lotensin] 1 ea DAILY 06/13/22 [History] Meclizine HCl [Antivert] 25 mg PO DAILY 06/13/22 [History] Metformin HCl [Metformin HCl ER] 1,000 mg BID 06/13/22 [History] PARoxetine HCL [Paxil] 10 mg PO DAILY 06/13/22 [History] Hx Tetanus, Diphtheria Vaccination/Date Given: No Hx Influenza Vaccination/Date Given: No Hx Pneumococcal Vaccination/Date Given: No Immunizations Up to Date: No Travel Risk - International Travel Have you traveled outside of the country in past 3 weeks: No - Coronavirus Screening Are you exhibiting any of the following symptoms?: No Close contact with a COVID-19 positive Pt in past 14-21 Days: No - Vaccine Status Have you recieved a Covid-19 vaccination: Yes 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 Pickler: 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 - Vaccination Dates Date of 2cond Vaccination (if applicable): unknown - Review of Systems Constitutional: Fatigue, Weakness Eyes: No Symptoms Ears, Nose, & Throat: No Symptoms Respiratory: No Symptoms Cardiac: No Symptoms Abdominal/Gastrointestinal: Nausea, Vomiting Genitourinary Symptoms: No Symptoms Musculoskeletal: Back Pain Skin: No Symptoms Neurological: Dizziness Psychological: Anxiety, Depression Hematologic/Lymphatic: No Symptoms Immunological/Allergic: No Symptoms - Past Medical History Pertinent Past Medical History: Yes Neurological History: Peripheral Neuropathy ENT History: No Pertinent History Cardiac History: No Pertinent History Respiratory History: Asthma Endocrine Medical History: Diabetes Type II Musculoskeletal History: No Pertinent History GI Medical History: Gallbladder Disease History: No Pertinent History Psycho-Social History: Anxiety, Depression Female Reproductive Disorders: No Pertinent History Other Medical History: celiac disease - Past Surgical History Past Surgical History: Yes Neuro Surgical History: No Pertinent History Cardiac: No Pertinent History Respiratory: No Pertinent History Gastrointestinal: Appendectomy, Cholecystectomy Genitourinary: No Pertinent History Musculoskeletal: No Pertinent History Female Surgical History: Other Other Surgical History: age 17 had exploratory to check ovaries, 2015 Gallbladder,pain pump - Social History Smoking Status: Current some day smoker How long have you smoked: 23 years Exposure to second hand smoke: Yes Drug Use: none Patient Lives Alone: No Significant Family History: no pertinent family hx - Nursing Vital Signs Nursing Vital Signs: Initial Vital Signs Temperature 97.9 F 06/13/22 21:33 Pulse Rate 104 H 06/13/22 21:33 Respiratory Rate 20 06/13/22 21:33 Blood Pressure 166/93 06/13/22 21:33 O2 Sat by Pulse Oximetry 96 06/13/22 21:33 Pain Scale Pain Intensity 4 - Physical Exam General Appearance: no apparent distress, alert, anxiety Eye Exam: PERRL/EOMI, eyes nml inspection Ears, Nose, Throat Exam: normal ENT inspection, TMs normal, pharynx normal, moist mucous membranes Neck Exam: normal inspection, non-tender, supple, full range of motion Respiratory Exam: normal breath sounds, lungs clear Cardiovascular Exam: regular rate/rhythm, normal heart sounds Gastrointestinal/Abdomen Exam: soft, normal bowel sounds, No tenderness Back Exam: normal inspection, normal range of motion, No CVA tenderness Extremity Exam: normal inspection, normal range of motion, pelvis stable Neurologic Exam: alert, oriented x 3, cooperative, manager shipping II-XII nml as tested, nml cerebellar function, nml station & gait, sensation nml, No normal mood/affect, No motor deficits Skin Exam: normal color SpO2 Interpretation: normal SpO2: 96 O2 Delivery: Room Air Ordered Tests: Active Orders 24 hr Category Date Time Status IV Insertion STAT Care 06/13/22 21:37 Active Transfer Order Routine Transfer 06/13/22 Ordered Medication Summary Generic Name Dose Route Start Last Admin Trade Name Freq PRN Reason Stop Dose Admin Sodium Chloride 1,000 mls @ 999 mls/hr 06/13/22 21:37 06/13/22 21:54 Sodium Chloride 0.9% 1000 Ml IV 06/13/22 22:37 999 mls/hr .Q1H1M STA Administration Discontinued Medications Generic Name Dose Route Start Last Admin Trade Name Freq PRN Reason Stop Dose Admin Sodium Chloride Confirm 06/13/22 21:52 Sodium Chloride 0.9% 1000 Ml Administered 06/13/22 21:53 Dose 1,000 mls @ ud .ROUTE .STK-MED ONE Ondansetron HCl 4 mg 06/13/22 21:37 06/13/22 21:54 Ondansetron Hcl 4 Mg/2 Ml Vial IV 06/13/22 21:38 4 mg STAT ONE Administration Ondansetron HCl Confirm 06/13/22 21:52 Ondansetron Hcl 4 Mg/2 Ml Vial Administered 06/13/22 21:53 Dose 4 mg .ROUTE .STK-MED ONE - Progress Progress: unchanged Progress Note: 06/13/22 22:07 51 years old female with multiple medical problems including hypertension, hyperlipidemia, diabetes mellitus, anxiety, depression, chronic pain with Dilaudid pump, vertigo who was evaluated few hours ago in the ER with work-up positive for acute renal failure, was recommended admission but patient left AMA. Patient was given meclizine/droperidol and Benadryl along with fluids and her vertigo improved. Patient reports her dizziness is better. She walked in the ER this time as well with no difficulty ambulation and nonfocal neuro exam. Denies any chest pain palpitations or shortness of breath. Patient is now complaining of some heaviness in the ears which probably is the reason for her vertigo. She does have UTI and started on Rocephin. I have discussed with Dr. Cisneros, reviewed history, work-up and current management plan. He recommended another bolus of fluid and then normal saline at a rate of 200/h and admission to the floor. Patient is agreeable with admission at this time. Patient still have nonfocal neuro exam and her vertigo seems to be peripheral, did not do CT or any other brain imaging/neurology work-up and Dr. Cisneros is aware of it and agree with it. Will see patient in: hospital (observation) Counseled pt/family regarding: diagnosis, need for follow-up - Departure Departure Disposition: Observation Clinical Impression: Acute renal failure, Acute UTI, Peripheral vertigo Condition: Stable Critical Care Time: No Referrals: ASHLEY ARMENTA [Primary Care Provider] - Follow up/PCP as directed
[2022-06-13] MEDS ORDERED: ROCEPHIN 2 Gm-D5w 50ML BAG** 2 G/50 ML IVPB IV ONE (22:11)
[2022-06-13 22:43] LABS: INFLUENZA A NEGATIVE (NEGATIVE); INFLUENZA B NEGATIVE (NEGATIVE); RESPIRATORY SYNCTIAL VIRUS NEGATIVE (Negative); SARS-CoV-2 Xpert Express NEGATIVE (NEGATIVE)
[2022-06-13] MEDS ORDERED: Pepcid 20 MG VIAL IV SCH (23:00)
[2022-06-13] MEDS ORDERED: Sodium Chloride 0.9% 1000 ML 1,000 ML IV SCH (23:00)
[2022-06-13] MEDS ORDERED: DUONEB 0.5-3 MG/3 ml Neb IH PRN (23:00)
[2022-06-13] MEDS ORDERED: Zofran 4 MG/2 ML VIAL IV PRN (23:00)
[2022-06-13] MEDS ORDERED: TYLENOL 325 MG PO PRN (23:00)
[2022-06-13] MEDS ORDERED: HUMALOG SQ PRN (23:00)
[2022-06-14 05:24] LABS: Absolute Neutrophil Ct (ANC) 5.53 x10^3/uL (1.4-6.9); BASOPHIL % 0.2 % (0.0-0.4); Basophil (Absolute #) 0.02 x10^3/uL (0-0.4); Eosinophil % 0.4 % (0.00-5.0); Eosinophil (Absolute #) 0.04 x10^3/uL (0-0.5); Hematocrit 40.1 % (35-47); Hemoglobin 12.5 g/dL (12.0-16.0); IMMATURE GRAN # 0.03 x10^3u/L (0.00-0.03); IMMATURE GRAN % 0.3 % (0.00-0.4); Lymphocyte (Absolute #) 3.61 x10^3/uL (1.0-4.6); Lymphocytes % 36.9 % (24.0-44.0); Mean Cell Volume 96.6 fL (78-100); Mean Corpuscular Hemoglobin 30.1 pg (26-32); Mean Corpuscular Hgb Concent. 31.2 g/dL (32-36); Mean Platelet Volume 9.6 fL (7.5-11.0); Monocyte (Absolute #) 0.54 x10^3/uL (0.0-1.3); Monocytes % 5.5 % (0.0-12.0); Neutrophil % 56.7 % (36.0-66.0); Platelet Count 156 x10^3/uL (150-450); Red Blood Count 4.15 x10^6/uL (4.1-5.4); Red Cell Distribution Width 13.9 % (11.5-14.0); White Blood Count 9.8 x10^3/uL (4.0-10.5)
[2022-06-14 05:32] LABS: ANION GAP 10.3 MEQ/L (5-15); BLOOD UREA NITROGEN 15 mg/dL (7-17); CHLORIDE 106 mmol/L (98-107); Calcium 8.4 mg/dL (8.4-10.2); Carbon Dioxide 25 mmol/L (22-30); Creatinine 1 0.68 mg/dL (0.52-1.04); EST GLOMERULAR FILTRATION RATE > 60.0 ML/MIN; Glucose 125 mg/dL (74-106); Potassium 5.2 mmol/L (3.5-5.1); SODIUM 137 mmol/L (137-145)
[2022-06-14 07:40] VITALS: BP 136/71; PULSE 90; O2SAT 93
--- NOTE | 2022-07-02 12:50 | PCM.SSS ---
History of Present Illness - Chief Complaint Chief Complaint: acute renal failure, UTI Date: 06/14/22 History of Present Illness: is a 51 year old female. Pt. presented to ER with general weakness for the past few days, found to have a UTI and acute renal failure secondary to dehydration. Pt. admitted for initiation of iv abx and iv fluids - Review of Systems Constitutional: No Fever, No Chills Eyes: No Symptoms Ears, Nose, & Throat: No Symptoms Respiratory: No Cough, No Short Of Breath Cardiac: No Chest Pain, No Edema, No Syncope Abdominal/Gastrointestinal: No Abdominal Pain, No Nausea, No Vomiting, No Diarrhea Genitourinary Symptoms: No Dysuria Musculoskeletal: No Back Pain, No Neck Pain Skin: No Rash Neurological: No Dizziness, No Focal Weakness, No Sensory Changes Psychological: No Symptoms Endocrine: No Symptoms Hematologic/Lymphatic: No Symptoms Immunological/Allergic: No Symptoms Medications & Allergies Home Medications: Home Medication List ALPRAZolam [Xanax] 0.5 mg PO TID 01/31/12 [History Confirmed 06/13/22] Glyburide 5 mg [Micronase 5 MG] 10 mg PO BID 01/31/12 [History Confirmed 06/13/22] Atorvastatin Calcium 20 mg PO DAILY 10/28/21 [History Confirmed 06/13/22] Insulin Glargine,Hum.rec.anlog [Ceasar Miranda] 20 units SQ HS 10/28/21 [History Confirmed 06/13/22] Insulin Lispro [Humalog Kwikpen] 20 unit SQ TID 10/28/21 [History Confirmed 06/14/22] Metoprolol Succinate 25 mg PO DAILY 10/28/21 [History Confirmed 06/13/22] Non-Formulary Drug [Non-Formulary Item] 1 each .ROUTE UD 10/28/21 [History Confirmed 06/13/22] Trazodone HCl 100 mg PO HS PRN 10/28/21 [History Confirmed 06/13/22] Bupropion HCl Xl 150 mg [Wellbutrin XL 150 MG] 150 mg PO BID tablet 10/29/21 [Rx Confirmed 06/13/22] Baclofen 10 mg [Lioresal 10 mg] 10 mg PO HS 06/13/22 [History Confirmed 06/14/22] Benazepril HCl [Lotensin] 10 mg PO DAILY 06/13/22 [History Confirmed 06/14/22] Meclizine HCl [Antivert] 25 mg PO DAILY 06/13/22 [History Confirmed 06/13/22] Metformin HCl [Metformin HCl ER] 1,000 mg PO BID 06/13/22 [History Confirmed 06/14/22] PARoxetine HCL [Paxil] 20 mg PO DAILY 06/13/22 [History Confirmed 06/14/22] Baclofen 20 mg PO TID 06/14/22 [History Confirmed 06/14/22] Gabapentin [Neurontin] 300 mg PO TID 06/14/22 [History Confirmed 06/14/22] Allergies/Adverse Reactions: Allergies Allergy/AdvReac Type Severity Reaction Status Date / Time Sulfa (Sulfonamide Allergy Intermediate Difficulty Verified 06/14/22 00:00 Antibiotics) Breathing [Sulfa(Sulfonamide Antibiotics)] cephalexin [From Keflex] Allergy Verified 06/15/22 09:24 gluten AdvReac Verified 06/14/22 00:00 - Past Medical History Past Medical History: Yes Neurological History: Peripheral Neuropathy ENT History: No Pertinent History Cardiac History: No Pertinent History Respiratory History: Asthma Endocrine Medical History: Diabetes Type II Musculoskelatal History: No Pertinent History GI Medical History: Gallbladder Disease, Other History: No Pertinent History Pyscho-Social History: Anxiety, Depression Reproductive Disorders: No Pertinent History Comment: celiac disease - Female History Hx Last Menstrual Period: 0 Are you now?: No - Past Surgical History Past Surgical History: Yes Neuro Surgical History: No Pertinent History Cardiac History: No Pertinent History Respiratory Surgery: No Pertinent History GI Surgical History: Appendectomy, Cholecystectomy Genitourinary Surgical Hx: No Pertinent History Musculskeletal Surgical Hx: No Pertinent History Female Surgical History: Other Other Surgical History: age 17 had exploratory to check ovaries, 2015 [place] llbladder,pain pump - Social History Smoking Status: Former smoker How long have you smoked: 33 years Exposure to second hand smoke: No Alcohol: None Drug Use: none Significant Family History: no pertinent family hx - Physical Exam General Appearance: no apparent distress, alert Neurologic Exam: alert, oriented x 3, cooperative, normal mood/affect, nml cerebellar function, nml station & gait, sensation nml, No motor deficits Eye Exam: PERRL/EOMI, eyes nml inspection Ears, Nose, Throat Exam: normal ENT inspection, TMs normal, pharynx normal, moist mucous membranes Neck Exam: normal inspection, non-tender, supple, full range of motion Respiratory Exam: normal breath sounds, lungs clear, No respiratory distress Cardiovascular Exam: regular rate/rhythm, normal heart sounds, normal peripheral pulses Gastrointestinal/Abdomen Exam: soft, normal bowel sounds, No tenderness, No mass Back Exam: normal inspection, normal range of motion, No CVA tenderness, No vertebral tenderness Extremity Exam: normal inspection, normal range of motion, pelvis stable Skin Exam: normal color, warm, dry, No rash Lymphatic Exam: No adenopathy Assessment/Plan (1) Acute kidney injury Status: Acute Code(s): N17.9 - ACUTE KIDNEY FAILURE, UNSPECIFIED (2) Acute renal failure Status: Acute (3) Vertigo Status: Acute Code(s): R42 - DIZZINESS AND GIDDINESS [facility] Summary - Hospital Course Hospital Course: Pt. admitted and feeling better the following day and no longer wanted to stay in the hospital despite being told she should stay for further treatment and stabilization, the patient opted to leave for home. - Vitals & Intake/Output Vital Signs: Vital Signs Temperature 97.8 F 06/14/22 07:39 Pulse Rate 90 06/14/22 07:39 Respiratory Rate 16 06/14/22 07:39 Blood Pressure 136/71 06/14/22 07:39 O2 Sat by Pulse Oximetry 93 L 06/14/22 07:39 - Lab Result Diagrams: 06/14/22 04:27 06/14/22 04:27 - Procedures and Test Procedures and Tests throughout Hospitalization: Therapy Orders & Screens 06/13/22 23:14 Smoking Cessation Education ONCE Comment: Diagnosis: acute renal failure Smoking Status: Current some day smoker How long have you smoked: 23 years Have you smoked in the past 12 months: No Approximately how many cigarettes per day: 1 to 2 packs per day Do you dip or chew tobacco: No If,Former Smoker,when did you quit: 1 yr 06/13/22 23:15 Respiratory Therapy Assessment DAILY Comment: Diagnosis: acute renal failure - Discharge Discharge Date: 06/14/22 Disposition: Against Medical Advice Condition: Stable Prescriptions: No Action ALPRAZolam [Xanax] 0.5 mg PO TID Glyburide 5 mg [Micronase 5 MG] 10 mg PO BID Insulin Lispro [Humalog Kwikpen] 20 unit SQ TID Atorvastatin Calcium 20 mg PO DAILY Trazodone HCl 100 mg PO HS PRN PRN Reason: DEPRESSION Metoprolol Succinate 25 mg PO DAILY Insulin Glargine,Hum.rec.anlog [Toujeo Solostar] 20 units SQ HS Non-Formulary Drug [Non-Formulary Item] 1 each .ROUTE UD Bupropion HCl Xl 150 mg [Wellbutrin XL 150 MG] 150 mg PO BID tablet PARoxetine HCL [Paxil] 20 mg PO DAILY Baclofen 10 mg [Lioresal 10 mg] 10 mg PO HS Meclizine HCl [Antivert] 25 mg PO DAILY Metformin HCl [Metformin HCl ER] 1,000 mg PO BID Benazepril HCl [Lotensin] 10 mg PO DAILY Baclofen 20 mg PO TID Gabapentin [Neurontin] 300 mg PO TID Instructions: Acute Kidney Injury, Dehydration, Adult (DC) Follow up with: ASHLEY ARMENTA [Primary Care Provider] - 06/24/22 1:15 pm Forms: Discharge Instructions
== END 2022-06-14 09:36 | disposition left against medical advice (07) ==
LOC: ED 21:18 → MED SURG 22:55
PROVIDERS: ADMIT Family Medicine; ATTEND Family Medicine
DX: N17.9 Acute kidney failure, unspecified (principal); I10 Essential (primary) hypertension; E78.5 Hyperlipidemia, unspecified; E11.9 Type 2 diabetes mellitus without complications; R42 Dizziness and giddiness; N39.0 Urinary tract infection, site not specified; Z79.899 Other long term (current) drug therapy; Z72.0 Tobacco use; Z20.828 Contact with and (suspected) exposure to other viral communicable diseases
CPT/HCPCS: 0241U; 36000; 36415; 80048; 82947; 85025; 93005; 93268; 96365; 96374; 99285; G0378; J0696; J2405